=== PATIENT | male | born 1970 | race Two or more races ===

== ENCOUNTER 2020-08-12 02:33 | Emergency (ER) | payer SELFPAY ==
--- NOTE | 2020-08-12 | XR_ITS ---
EXAMINATION: CHEST 1 VIEW CLINICAL INFORMATION: Dyspnea. COMPARISON: 10/23/2018. TECHNIQUE: An AP view of the chest is provided. FINDINGS: The cardiac silhouette is not enlarged. The mediastinal and hilar contours are unremarkable. There are neither pleural effusions nor pneumothoraces. There is mild atelectasis within the right lower lung zone. There are no consolidations. The osseous structures are stable. XR/XR chest 1V IMPRESSION: No consolidations. Mild right lower lung zone atelectasis.
--- NOTE | 2020-08-12 | ECG_ITS ---
Test Reason : CHEST PAIN Blood Pressure : / mmHG Vent. Rate : 101 BPM Atrial Rate : 101 BPM P-R Int : 164 ms QRS Dur : 096 ms QT Int : 358 ms P-R-T Axes : 051 -21 036 degrees QTc Int : 464 ms Sinus tachycardia Minimal voltage criteria for LVH, may be normal variant RSR' or QR pattern in V1 suggests right ventricular conduction delay Left axis deviation Abnormal ECG When compared with ECG of 10-FEB-2017 07:31, T wave amplitude has increased in Anterior leads Referred By: Generic ED Physician Electronically Signed By:MARILYN CAIN MD
[2020-08-12 02:49] VITALS: BP 125/77; BP 130/80; PULSE 100; PULSE 109; RESP 12; TEMP 37; O2SAT 96; O2SAT 97; BMI 29.5
--- NOTE | 2020-08-12 03:25 | ED.SOB ---
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 He denies any COVID-19 and states that he does not feel any problems despite the fact that he is experiencing shortness of breath. Otherwise, he denies fevers, chills, sore throat, new cough and states that he has underlying lung condition for which he has previously been taking an inhaler for but no longer has a prescription. He states that he used a family member's nebulizer yesterday morning with limited resolution of symptoms. In addition, he states he experienced some chest tightness yesterday that has currently resolved. Related Data Previous Rx's Medication Instructions Recorded albuterol sulfate [Ventolin HFA] 2 puff INHALATION Q4-6H PRN #1 ea 08/12/20 prednisone 40 mg PO DAILY 5 Days #10 tab 08/12/20 Allergies Allergy/AdvReac Type Severity Reaction Status Date / Time penicillin V Allergy Unknown Rash Verified 08/12/20 02:48 Penicillins [PENICILLINS] Allergy Unknown UNKNOWN Verified 08/12/20 02:48 Review of Systems Review of Systems: Pertinent positives and negatives as stated in HPI 10 point review of systems otherwise negative. PMFSH Past Medical History Source: nursing notes reviewed Medical History Asthma Pneumonia Social History Social History Advance Directives: No Advance Directives Information Provided: No Physical Exam Vital Signs: Vital Signs: Last Vital Signs Temp 98.6 F 08/12/20 02:49 Pulse 100 08/12/20 02:49 Resp 12 08/12/20 02:49 BP 125/77 08/12/20 02:49 Pulse Ox 97 08/12/20 02:49 Body Mass Index 29.5 VITAL SIGNS: Reviewed. GENERAL: Well developed, well nourished, in no acute distress. HEAD: Normocephalic/atraumatic, EYES: PERRLA, EOMI intact without pain, no nystagmus/pallor/icterus noted EARS: Ext canals without abnormality, TMs non-bulging and non-erythematous NOSE: Nares patent bilateral OROPHARYNX: no oral lesions noted, posterior pharynx clear and non-erythematous without noted tonsillar enlargement/erythema/exudates NECK: Supple, no adenopathy LUNGS: Normal breath sounds. No adventitious sounds or accessory muscle use. SpO2<97> CARDIOVASCULAR: Regular rate and rhythm without noted murmurs, no JVD or lower extremity edema. ABDOMEN: Soft, non-tender, non-distended with bowel sounds. No rigidity. No guarding. No palpable masses or hernias noted MUSCULOSKELETAL: No tenderness, deformities, or effusions noted on gross inspection. EXTREMITIES: No cyanosis, clubbing or edema. SKIN: Inspection of the skin reveals no rashes, ulcerations, jaundice, pallor, or petechiae. NEUROLOGIC: Alert and oriented x 4. Strength and sensation to light touch were grossly intact x 4. Course Course Course Narrative: Is a 50-year-old male with history and clinical presentation concerning for possible viral URI, mild asthma exacerbation, and less likely pneumonia/ PE/cardiac etiology however the latter of which will be ruled out. On review of all investigations there is no evidence to support pneumonia, PE, cardiac ischemia and with mild asthma like symptoms versus viral URI patient will be discharged with a prescription for Bentyl in as he does not have a current PCP that can provide this medication. All results and findings were discussed with the patient at bedside with a medical service technician and he was discharged to home in stable condition. MDM - SOB/Dyspnea Lab Data Result diagrams: 08/12/20 03:40 08/12/20 03:40 Labs: Lab Results 08/12/20 08/12/20 08/12/20 Range/Units 03:40 03:40 03:40 WBC 9.3 (4.8-10.8) X10*3/uL RBC 4.84 (4.60-5.80) X10*6/uL Hgb 15.2 (14.0-18.0) g/dl Hct 44.6 (42-52) % MCV 92.1 (80-98) fL MCH 31.4 (27.0-33.0) pg MCHC 34.1 (31.0-36.0) g/dl RDW 13.2 (11.0-16.0) % Plt Count 274 (160-400) X10*3/uL MPV 9.7 (9.4-12.4) fL Immature Gran % (Auto) 0.3 (0.0-0.4) % Neut % (Auto) 64.1 (45-73) % Lymph % (Auto) 23.8 (20-40) % [place] % (Auto) 6.5 (2-11) % Eos % (Auto) 5.0 H (0-4) % Baso % (Auto) 0.3 (0-2) % Lymph # (Auto) 2.2 (1.2-4.9) X10*3/uL [place] # (Auto) 0.6 (0.1-1.2) X10*3/uL Eos # (Auto) 0.5 H (0.0-0.4) X10*3/uL Baso # (Auto) 0.0 (0.0-0.2) X10*3/uL Abs Immat Gran (auto) 0.03 (0.00-0.03) X10*3/uL Absolute Neuts (auto) 6.0 (2.0-8.3) X10*3/uL Absolute Nucleated RBC 0.000 (0.0-0.012) X10*3/uL Nucleated RBC % (auto) 0.0 (0.0-0.2) /100WBC D-Dimer < 200 NG/ML Sodium 139 (135-145) mmol/L Potassium 3.7 (3.3-5.1) mmol/l Chloride 104 (96-108) mmol/L Carbon Dioxide 27 (22-29) mmol/L Anion Gap 12 (12-20) BUN 15 (9-16) mg/dL Creatinine 1.04 (0.5-1.4) mg/dL Estim Creat Clear Calc 81.0 Estimated GFR > 60 Random Glucose 79 (60-115) mg/dL Calcium 9.5 (8.4-10.2) mg/dL Total Bilirubin 0.6 (0.0-1.0) mg/dL AST 34 (5-37) U/L ALT 25 (0-40) U/L Alkaline Phosphatase 77 (39-117) U/L Troponin I High Sens (<3.5-35.0) ng/L Total Protein 7.6 (6.5-8.0) g/dL Albumin 4.5 (3.5-5.0) g/dL 08/12/20 Range/Units 03:40 WBC (4.8-10.8) X10*3/uL RBC (4.60-5.80) X10*6/uL Hgb (14.0-18.0) g/dl Hct (42-52) % MCV (80-98) fL MCH (27.0-33.0) pg MCHC (31.0-36.0) g/dl RDW (11.0-16.0) % Plt Count (160-400) X10*3/uL MPV (9.4-12.4) fL Immature Gran % (Auto) (0.0-0.4) % Neut % (Auto) (45-73) % Lymph % (Auto) (20-40) % [place] % (Auto) (2-11) % Eos % (Auto) (0-4) % Baso % (Auto) (0-2) % Lymph # (Auto) (1.2-4.9) X10*3/uL [place] # (Auto) (0.1-1.2) X10*3/uL Eos # (Auto) (0.0-0.4) X10*3/uL Baso # (Auto) (0.0-0.2) X10*3/uL Abs Immat Gran (auto) (0.00-0.03) X10*3/uL Absolute Neuts (auto) (2.0-8.3) X10*3/uL Absolute Nucleated RBC (0.0-0.012) X10*3/uL Nucleated RBC % (auto) (0.0-0.2) /100WBC D-Dimer NG/ML Sodium (135-145) mmol/L Potassium (3.3-5.1) mmol/l Chloride (96-108) mmol/L Carbon Dioxide (22-29) mmol/L Anion Gap (12-20) BUN (9-16) mg/dL Creatinine (0.5-1.4) mg/dL Estim Creat Clear Calc Estimated GFR Random Glucose (60-115) mg/dL Calcium (8.4-10.2) mg/dL Total Bilirubin (0.0-1.0) mg/dL AST (5-37) U/L ALT (0-40) U/L Alkaline Phosphatase (39-117) U/L Troponin I High Sens < 3.5 (<3.5-35.0) ng/L Total Protein (6.5-8.0) g/dL Albumin (3.5-5.0) g/dL ECG Data Attestation: I personally reviewed and interpreted this ECG as follows: Interpretation: sinus rhythm, HR- 101, no acute evidence of ischemia, CO/QRS/ QTC are within normal limits. Discharge Plan Discharge Clinical Impression: Asthma with exacerbation Qualifiers: Asthma severity: mild Asthma persistence: unspecified Qualified Code(s): J45.901 - Unspecified asthma with (acute) exacerbation Patient Disposition: Home, Self-Care Instructions: Asthma (ED) Additional Instructions: 1. Hoy le lucia hecho carson prueba de COVID-19 y deber? permanecer en cuarentena hasta que reciba carson llamada que le proporcione los resultados de la prueba. Estos resultados se deben informar a la cameron p?ica de [place]. 2. Deber? buscar el establecimiento de atenci?n con un proveedor de atenci?n primaria para el tratamiento y mantenimiento continuos de tristan afecci?n pulmonar subyacente. El paciente y / o la mike reconocen que comprenden los resultados (seg?n corresponda), el diagn?stico, el plan de tratamiento, la necesidad de seguimiento y los s?ntomas que deber?an impulsar el regreso a la parviz de emergencias. Prescriptions: New albuterol sulfate [Ventolin HFA] 90 mcg/actuation HFA aerosol inhaler 2 puff inhalation Q4-6H PRN (Reason: shortness of breath or wheezing) Qty: 1 RF: 0 prednisone 20 mg tablet 40 mg PO DAILY 5 Days Qty: 10 RF: 0 Print Language: Nauruan
[2020-08-12 03:47] LABS: Basophils Percent Auto 0.3 % (0-2); Eosinophils Absolute Auto 0.5 X10*3/uL (0.0-0.4); Hematocrit 44.6 % (42-52); Hemoglobin 15.2 g/dl (14.0-18.0); Imm Gran Abs Auto 0.03 X10*3/uL (0.00-0.03); Imm Gran Pct Auto 0.3 % (0.0-0.4); Lymphocytes Absolute Auto 2.2 X10*3/uL (1.2-4.9); Lymphocytes Percent Auto 23.8 % (20-40); MANUAL DIFF FLAG NO; Mean Corpuscular HGB Conc 34.1 g/dl (31.0-36.0); Mean Corpuscular Hemoglobin 31.4 pg (27.0-33.0); Mean Corpuscular Volume 92.1 fL (80-98); Mean Platelet Volume 9.7 fL (9.4-12.4); Monocytes Absolute Auto 0.6 X10*3/uL (0.1-1.2); Monocytes Percent Auto 6.5 % (2-11); Neutrophils Percent Auto 64.1 % (45-73); Platelet Count 274 X10*3/uL (160-400); Red Blood Count 4.84 X10*6/uL (4.60-5.80); Red Cell Distribution Width 13.2 % (11.0-16.0); White Blood Count 9.3 X10*3/uL (4.8-10.8)
[2020-08-12 03:57] LABS: D Dimer < 200 NG/ML
--- NOTE | 2020-08-12 03:58 | PC.NURSE ---
pt resting in bed and in no distress. pt has a dry cough, infrequent. pt reports he is a smoker, with a history of asthma. pt speaking in full and clear sentences, BBS clear and equal. pt;s skin warm and dry. pt reports that his chest pain resolved yesterday and was only present for a few hours.
[2020-08-12 04:09] LABS: Alanine Aminotransferase 25 U/L (0-40); Albumin Level 4.5 g/dL (3.5-5.0); Alkaline Phosphatase 77 U/L (39-117); Anion Gap 12 (12-20); Aspartate Amino Transferase 34 U/L (5-37); Bilirubin Total 0.6 mg/dL (0.0-1.0); Blood Urea Nitrogen 15 mg/dL (9-16); Calcium 9.5 mg/dL (8.4-10.2); Carbon Dioxide 27 mmol/L (22-29); Chloride 104 mmol/L (96-108); Estimated Glomerular Filt Rate > 60; Glucose Random 79 mg/dL (60-115); Potassium 3.7 mmol/l (3.3-5.1); Sodium 139 mmol/L (135-145); Total Protein 7.6 g/dL (6.5-8.0)
[2020-08-12 04:13] LABS: Troponin-I High Sensitivity < 3.5 ng/L (<3.5-35.0)
[2020-08-12 04:42] VITALS: BP 108/72; PULSE 88; RESP 14; O2SAT 96
== END 2020-08-12 04:46 | disposition home or self-care (01) ==
PROVIDERS: Emergency Provider Student in an Organized Health Care Education/Training Program
DX: J45.901 Unspecified asthma with (acute) exacerbation (principal); R06.02 Shortness of breath; Z20.828 Contact with and (suspected) exposure to other viral communicable diseases; Z79.899 Other long term (current) drug therapy
CPT/HCPCS: 36415; 71045; 80053; 84484; 85025; 85379; 93005; 99283; 99284; U0003

== ENCOUNTER 2021-07-20 12:36 | Outpatient (REF) | payer MEDICAID, SELFPAY ==
--- NOTE | ~2021-07-20 | XR_ITS ---
EXAMINATION: XR KNEE, RIGHT CLINICAL INFORMATION: Pain COMPARISON: None TECHNIQUE: Four views of the right knee. FINDINGS: Bones and soft tissues are normal. No fracture or joint effusion. Alignment is anatomic. Joint spaces are well maintained. No abnormal soft tissue calcification. XR/XR knee RT 4V IMPRESSION: Normal right knee.
== END 2021-07-20 12:37 | disposition home or self-care (01) ==
LOC: HO.XRAY 12:36
PROVIDERS: PCP Nurse Practitioner; Visit Provider Nurse Practitioner
DX: M25.561 Pain in right knee (principal)
CPT/HCPCS: 73564

== ENCOUNTER 2021-11-03 18:29 | Emergency (ER) | payer MEDICAID, SELFPAY ==
--- NOTE | ~2021-11-03 | XR_ITS ---
EXAMINATION: XR ANKLE, LEFT XR FOOT, LEFT CLINICAL INFORMATION: Worsening pain for COMPARISON: None TECHNIQUE: AP, lateral, and mortise views of the left ankle and AP, lateral, and oblique views of the left foot. FINDINGS: LEFT ANKLE: No fracture. Alignment is anatomic. Ankle mortise is symmetric. Joint spaces are maintained. No ankle joint effusion. Soft tissues are normal. LEFT FOOT: Mild soft tissue swelling foot. No fracture or malalignment. Bone mineralization is normal. Joints appear relatively well-preserved. No soft tissue mineralization. XR/XR foot LT min 3V IMPRESSION: No acute osseous abnormalities at the left ankle and foot. Mild soft tissue swelling at the foot.
--- NOTE | ~2021-11-03 | XR_ITS ---
EXAMINATION: XR ANKLE, LEFT XR FOOT, LEFT CLINICAL INFORMATION: Worsening pain for COMPARISON: None TECHNIQUE: AP, lateral, and mortise views of the left ankle and AP, lateral, and oblique views of the left foot. FINDINGS: LEFT ANKLE: No fracture. Alignment is anatomic. Ankle mortise is symmetric. Joint spaces are maintained. No ankle joint effusion. Soft tissues are normal. LEFT FOOT: Mild soft tissue swelling foot. No fracture or malalignment. Bone mineralization is normal. Joints appear relatively well-preserved. No soft tissue mineralization. XR/XR ankle LT min 3V IMPRESSION: No acute osseous abnormalities at the left ankle and foot. Mild soft tissue swelling at the foot.
--- NOTE | ~2021-11-03 | XR_ITS ---
EXAMINATION: XR CHEST CLINICAL INFORMATION: Wheezing COMPARISON: 08/12/2020 TECHNIQUE: Frontal view of the chest was obtained. FINDINGS: Cardiac and mediastinal contours are normal. Pulmonary vasculature is unremarkable. Lungs are clear. No consolidation, pneumothorax, or pleural effusion. No acute osseous findings. XR/XR chest 1V IMPRESSION: No acute cardiopulmonary abnormalities.
[2021-11-03 18:41] VITALS: BP 129/81; PULSE 83; RESP 18; TEMP 36.7; O2SAT 97; BMI 27.6
[2021-11-03 19:08] LABS: COVID-19 Test Negative (Negative)
--- NOTE | 2021-11-03 19:50 | ED_ITS ---
HPI - Extremity Injury (Lower) General Chief Complaint: Dyspnea Stated Complaint: X3 wks left ankle pain and asthma Time Seen by Provider: 11/03/21 18:56 Source: patient Mode of arrival: ambulatory Limitations: language barrier ([place]alander-speaking, medical auditor utilized) History of Present Illness HPI Narrative: Patient is a 51-year-old male with a past medical history of asthma. Patient is complaining of worsening pain to his left ankle and left heel over the past 3 weeks. Pain is increasing, it is worse with weight-bearing, and worse while barefoot. He reports taking duloxetine as prescribed by his primary care provider which is not helping. Denies any known precipitating injury, past surgeries to the left ankle or foot, fevers, chills, recent wounds or infections, swelling/redness of the foot or leg, denies past history of DVT/PE, recent surgery or immobilization, recent travel, history of cancer. In addition, when presenting to triage she had reported feeling short of breath earlier today, for which he used his albuterol inhaler and this improved. Currently without shortness of breath. Denies any recent sick contacts or COVID-19 exposure. Denies chest pain, palpitations, dizziness or lightheadedness. Onset (ago): week(s) Severity: mild Severity scale (1-10): 4 Relieving factors: nothing Exacerbating factors: weight bearing Related Data Previous Rx's Medication Instructions Recorded albuterol sulfate 90 mcg/actuation 2 puff INHALATION Q4-6H PRN #1 ea 08/12/20 aerosol inhaler (Ventolin HFA) prednisone 20 mg tablet 40 mg PO DAILY 5 Days #10 tab 08/12/20 Allergies Allergy/AdvReac Type Severity Reaction Status Date / Time penicillin V Allergy Unknown Rash Verified 11/03/21 19:24 Penicillins [PENICILLINS] Allergy Unknown Rash Verified 11/03/21 19:24 Review of Systems Verdana 4l Review of Systems: Verdana 4d Bowl[place] 4Bd Constitutional: Bowlus 4d No weight loss, fever, chills, weakness or fatigue. Bowlus 4Bd HEENT: [place] 4d No vision changes. No sneezing, congestion, runny nose or sore throat. Bowlus 4Bd Skin: Bowl[place] 4d No rash or itching. Bowlus 4Bd CardiovascularCardiovascular: No chest pain, chest pressure or chest discomfort. No palpitations or pedal edema. Respiratory: + shortness of breath as noted in HPI. No cough or sputum production. Gastrointestinal: No anorexia, nausea, vomiting or diarrhea. No abdominal pain or blood in stool. Genitourinary: No burning micturition. No urinary frequency or incontinence. Neurologic: No headache, dizziness, syncope, unilateral weakness, ataxia, numbness or tingling in the extremities. Musculoskeletal: + left ankle and heel pain Hematologic: No bleeding or bruising. Lymphatics: No enlarged lymph nodes. Psychiatric:No depression or anxiety. Endocrine: No polyuria or polydipsia. [facility] Past Medical History Medical History Asthma Pneumonia Surgical History No pertinent past surgical history Family History Family History Mother Diabetes Pulmonary disease Father Medical history unknown Daughter No problems noted. Son No problems noted. Son No problems noted. Son No problems noted. Sister In good health Brother No problems noted. 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 Blood pressure normal.? Heart rate normal.? Respiration rate normal. Temperature normal.? Oxygen saturation normal. Appearance: Alert.?Oriented to person, place and time. No acute distress.?Normal affect. Eyes: Pupils equal, round and reactive to light.? ENT: Pharynx normal.?? Neck: Normal inspection.? Neck supple.?? CVS: Heart sounds normal. Normal heart rate and rhythm.? Pulses normal.?? Respiratory: No respiratory distress.? Lung sounds clear to auscultation bilaterally?? Abdomen: Soft and non-tender. Normoactive bowel sounds. No pulsatile mass.?? Skin: Skin warm and dry.? Normal skin color.? Normal skin turgor.?? Extremities: No lower extremity edema.? No calf ttp? MSK: Full AROM of left ankle, palpable 2+ DP/PT pulses bilaterally. Focal tenderness to palpation of the left medial calcaneus and at the proximal plantar fascia Neuro: Moves all extremities spontaneously. Sensation intact bilaterally. No focal neuro deficits. Ambulates with antalgic gait.. Course Course Course Narrative: Patient is a 51-year-old male being evaluated for left ankle and heel pain. Will obtain x-ray of the ankle and foot to exclude fracture dislocations though I suspect his symptoms are more consistent with possible plantar fasciitis. History and physical exam not consistent with DVT, or tendon rupture. CBC and BMP in addition chest x-ray were ordered as protocol from triage. Reevaluation(s) Reevaluation #1: COVID-19 testing is negative. Chest x-ray is normal. No acute fracture or dislocation of the left ankle or foot there is some mild soft tissue swelling of the left foot. Patient well appearing, nontoxic, applied Merrick bandage to the left foot, advised use of NSAIDs and Tylenol in addition to [id number] shoe inserts and up with PCP and/or podiatry, patient was discharged home, discussed reasons to return to the emergency department, all questions answered. Patient agrees plan of care MDM - Extremity Injury (Lower) Medical Records Attestation: I reviewed the patient's medical records. Lab Data Attestation: I reviewed the patient's lab results. Labs: Lab Results 11/03/21 Range/Units 18:47 COVID-19 ([facility]) Negative (Negative) COVID-19 Clin Com See Note Imaging Data Chest x-ray: Attestation: I personally reviewed and interpreted this imaging study as follows: Radiologist's impression: IMPRESSION: No acute cardiopulmonary abnormalities. left foot/ankle XR: Attestation: I personally reviewed and interpreted this imaging study as follows: Radiologist's impression: No acute osseous abnormalities at the left ankle and foot. Mild soft tissue swelling at the foot. Discharge Plan Discharge Clinical Impression: Plantar fasciitis Patient Disposition: Home, Self-Care Instructions: Plantar Fasciitis (ED), Plantar Fasciitis Exercises (ED) Additional Instructions: You may use Tylenol and ibuprofen [id number] as needed for your pain. In addition, you should avoid walking barefoot at all times. You can purchase [id number] shoe inserts to alleviate some of your pain. Please contact your primary care provider reschedule follow-up visit in 1-3 days. You may benefit from a referral to Podiatry for orthotics. Please return to the emergency department with any new or worsening symptoms or concerns. Prescriptions: No Action albuterol sulfate [Ventolin HFA] 90 mcg/actuation HFA aerosol inhaler 2 puff inhalation Q4-6H PRN (Reason: shortness of breath or wheezing) Qty: 1 0RF prednisone 20 mg tablet 40 mg PO DAILY 5 Days Qty: 10 0RF Print Language: New Zealander
[2021-11-03] MEDS: Acetaminophen 325 MG TABLET 650 MG PO (19:56)
[2021-11-03] MEDS: Ibuprofen 600 MG TABLET PO (19:56)
--- NOTE | 2021-11-03 20:09 | PC.NURSE ---
attempted to draw labs as ordered . patient refused . provider notified .
[2021-11-03 20:51] VITALS: RESP 16
[2021-11-03 20:59] VITALS: BP 109/67; PULSE 89; RESP 16; TEMP 37; O2SAT 97
== END 2021-11-03 21:09 | disposition home or self-care (01) ==
PROVIDERS: Emergency Provider Emergency Medicine Emergency Medical Services
DX: M72.2 Plantar fascial fibromatosis (principal); Z20.822 Contact with and (suspected) exposure to COVID-19; R06.02 Shortness of breath
CPT/HCPCS: 71045; 73610; 73630; 87635; 99283; 99284

== ENCOUNTER 2022-11-27 12:12 | Emergency (ER) | payer MEDICAID, SELFPAY ==
[2022-11-27 13:06] VITALS: BP 142/88; PULSE 108; RESP 18; TEMP 36.7; O2SAT 98; BMI 37.9
--- NOTE | 2022-11-27 13:06 | ED.GENADULT ---
HPI - General Adult General Chief complaint: Abdominal Pain Stated complaint: Stomach Pain Related Data Previous Rx's Medication Instructions Recorded albuterol sulfate 90 mcg/actuation 2 puff inhalation Q4-6H PRN 08/12/20 aerosol inhaler (Ventolin HFA) shortness of breath or wheezing #1 ea prednisone 20 mg tablet 40 mg PO DAILY 5 days #10 tabs 08/12/20 azithromycin 250 mg tablet See Rx Instructions PO .COMPLEX #6 12/30/22 tabs benzonatate 200 mg capsule 200 mg PO TID PRN cough #20 caps 12/30/22 prednisone 20 mg tablet 40 mg PO DAILY #10 tabs 12/30/22 omeprazole 20 mg capsule,delayed 20 mg PO DAILY #30 caps 05/12/23 release Allergies Allergy/AdvReac Type Severity Reaction Status Date / Time penicillin V Allergy Unknown Rash Verified 01/27/23 11:34 Penicillins [PENICILLINS] Allergy Unknown Rash Verified 01/27/23 11:34 shellfish derived Allergy Swelling Verified 01/27/23 11:34 [facility] Past Medical History Medical History Asthma Pneumonia Surgical History No pertinent past surgical history Family History Family History Mother Diabetes Pulmonary disease Father Medical history unknown Daughter No problems noted. Son No problems noted. Son No problems noted. Son No problems noted. Sister In good health Brother No problems noted. Social History Social History Alcohol intake: current Alcohol intake frequency: holidays/special occasions only Alcohol type: beer Smoked in Last 30 Days: Yes Use of substances other than those prescribed or required for medical reasons: No Advance Directives: No Advance Directives Information Provided: Yes Physical Exam ED Vital Signs: BMI result Body Mass Index 37.9 Course Course Course Narrative: MJ - [id number]-vba-male, hx of asthma, presenting to the emergency department with complaints of abdominal pain, nausea, and vomiting since yesterday. Patient believes he has ?acid problems. ? Plan for labs in to be seen in ER when a room becomes available Medical Decision Making Lab Data 11/27/22 13:17 11/27/22 13:17 Labs: Lab Results 11/27/22 11/27/22 Range/Units 13:17 13:17 WBC 9.6 (4.8-10.8) X10*3/uL RBC 5.33 (4.60-5.80) X10*6/uL Hgb 15.3 (14.0-18.0) g/dl Hct 46.5 (42.0-52.0) % MCV 87.2 (80.0-98.0) fL MCH 28.7 (27.0-33.0) pg MCHC 32.9 (31.0-36.0) g/dl RDW 14.0 (11.0-16.0) % Plt Count 292 (160-400) X10*3/uL MPV 10.4 (9.4-12.4) fL Immature Gran % (Auto) 0.2 (0.0-0.4) % Neut % (Auto) 72.9 (45-73) % Lymph % (Auto) 18.3 L (20-40) % [place] % (Auto) 5.9 (2-11) % Eos % (Auto) 2.4 (0-4) % Baso % (Auto) 0.3 (0-2) % Lymph # (Auto) 1.8 (1.2-4.9) X10*3/uL [place] # (Auto) 0.6 (0.1-1.2) X10*3/uL Eos # (Auto) 0.2 (0.0-0.4) X10*3/uL Baso # (Auto) 0.0 (0.0-0.2) X10*3/uL Abs Immat Gran (auto) 0.02 (0.00-0.03) X10*3/uL Absolute Neuts (auto) 7.0 (2.0-8.3) x10*3/uL Absolute Nucleated RBC 0.000 (0.0-0.012) X10*3/uL Nucleated RBC % (auto) 0.0 (0.0-0.2) /100WBC Sodium 141 (135-145) mmol/L Potassium 4.8 (3.3-5.1) mmol/L Chloride 106 (96-108) mmol/L Carbon Dioxide 27 (22-29) mmol/L Anion Gap 13 (12-20) BUN 12 (9-16) mg/dL Creatinine 0.97 (0.5-1.4) mg/dL Estim Creat Clear Calc 96.3 Estimated GFR > 60 Random Glucose 104 (60-115) mg/dL Calcium 9.9 (8.4-10.2) mg/dL Total Bilirubin 0.5 (0.0-1.0) mg/dL AST 34 (5-37) U/L ALT 34 (0-40) U/L Alkaline Phosphatase 92 (39-117) U/L Total Protein 7.7 (6.5-8.0) g/dL Albumin 4.4 (3.5-5.0) g/dL Lipase 23 (8-78) U/L Discharge Plan Discharge Clinical Impression: Abdominal pain Patient Disposition: Elopement Prescriptions: No Action albuterol sulfate [Ventolin HFA] 90 mcg/actuation HFA aerosol inhaler 2 puff inhalation Q4-6H PRN (Reason: shortness of breath or wheezing) Qty: 1 0RF prednisone 20 mg tablet 40 mg PO DAILY 5 Days Qty: 10 0RF azithromycin 250 mg tablet See Rx Instructions .ROUTE .COMPLEX Qty: 6 0RF Rx Instructions: For 250 mg dose pack: take 500 mg today (day 1), then 250 mg for 4 days (days 2-5) benzonatate 200 mg capsule 200 mg PO TID PRN (Reason: cough) Qty: 20 0RF prednisone 20 mg tablet 40 mg PO DAILY Qty: 10 0RF omeprazole 20 mg capsule,delayed release(DR/EC) 20 mg PO DAILY Qty: 30 0RF Discharge Date/Time: 11/28/22 00:46
[2022-11-27 13:23] LABS: MANUAL DIFF FLAG NO
[2022-11-27 13:33] LABS: Basophils Percent Auto 0.3 % (0-2); Eosinophils Absolute Auto 0.2 X10*3/uL (0.0-0.4); Eosinophils Percent Auto 2.4 % (0-4); Hematocrit 46.5 % (42.0-52.0); Hemoglobin 15.3 g/dl (14.0-18.0); Imm Gran Abs Auto 0.02 X10*3/uL (0.00-0.03); Imm Gran Pct Auto 0.2 % (0.0-0.4); Lymphocytes Absolute Auto 1.8 X10*3/uL (1.2-4.9); Lymphocytes Percent Auto 18.3 % (20-40); Mean Corpuscular HGB Conc 32.9 g/dl (31.0-36.0); Mean Corpuscular Hemoglobin 28.7 pg (27.0-33.0); Mean Corpuscular Volume 87.2 fL (80.0-98.0); Mean Platelet Volume 10.4 fL (9.4-12.4); Monocytes Absolute Auto 0.6 X10*3/uL (0.1-1.2); Monocytes Percent Auto 5.9 % (2-11); Neutrophils Percent Auto 72.9 % (45-73); Platelet Count 292 X10*3/uL (160-400); Red Blood Count 5.33 X10*6/uL (4.60-5.80); White Blood Count 9.6 X10*3/uL (4.8-10.8)
[2022-11-27 13:43] LABS: Alanine Aminotransferase 34 U/L (0-40); Albumin Level 4.4 g/dL (3.5-5.0); Alkaline Phosphatase 92 U/L (39-117); Anion Gap 13 (12-20); Aspartate Amino Transferase 34 U/L (5-37); Bilirubin Total 0.5 mg/dL (0.0-1.0); Blood Urea Nitrogen 12 mg/dL (9-16); Calcium 9.9 mg/dL (8.4-10.2); Carbon Dioxide 27 mmol/L (22-29); Chloride 106 mmol/L (96-108); Creatinine Clr Calc Pharmacy 96.3; Estimated Glomerular Filt Rate > 60; Glucose Random 104 mg/dL (60-115); Lipase 23 U/L (8-78); Potassium 4.8 mmol/L (3.3-5.1); Sodium 141 mmol/L (135-145); Total Protein 7.7 g/dL (6.5-8.0)
== END 2022-11-28 00:46 | disposition left against medical advice (07) ==
PROVIDERS: Physician Assistant; Emergency Provider Emergency Medicine
DX: R10.9 Unspecified abdominal pain (principal); R11.2 Nausea with vomiting, unspecified; J45.909 Unspecified asthma, uncomplicated; Z79.899 Other long term (current) drug therapy
CPT/HCPCS: 36415; 80053; 83690; 85025; 99281; 99283

== ENCOUNTER 2022-12-30 09:58 | Emergency (ER) | payer MEDICAID, SELFPAY ==
--- NOTE | ~2022-12-30 | XR_ITS ---
EXAMINATION: XR CHEST CLINICAL INFORMATION: Chest pain. COMPARISON: 11/03/2021 chest radiograph. TECHNIQUE: 2 views of the chest were obtained. FINDINGS: No significant abnormality is noted involving the heart, lungs, mediastinum, bony thorax or soft tissues. XR/XR chest 2V IMPRESSION: No acute cardiopulmonary process.
[2022-12-30 10:01] VITALS: BP 140/74; PULSE 99; RESP 19; TEMP 36.6; O2SAT 99; BMI 39.4
--- NOTE | 2022-12-30 10:04 | ECG_ITS ---
Test Reason : chest pain Blood Pressure : / mmHG Vent. Rate : 096 BPM Atrial Rate : 096 BPM P-R Int : 150 ms QRS Dur : 098 ms QT Int : 342 ms P-R-T Axes : 044 -30 033 degrees QTc Int : 432 ms Normal sinus rhythm Left axis deviation Abnormal ECG When compared to the previous EKG of No significant changes seen Referred By: Generic ED Physician Electronically Signed By:Van Castellanos
--- NOTE | 2022-12-30 10:29 | ED.GENADULT ---
HPI - General Adult General Chief complaint: Upper Respiratory Symptoms Stated complaint: chest pain Time Seen by Provider: 12/30/22 10:19 Source: patient, RN notes reviewed, old records reviewed and interpreter and translator Mode of arrival: ambulatory Limitations: language barrier History of Present Illness HPI narrative: 52-year-old primarily Setswana-speaking male presents for evaluation of shortness of breath, cough patient reports that he has had an increased cough for the last 4 days. He denies any sputum production. Patient reports he has a history of asthma he also complains of chest and rib pain with coughing. His discomfort is moderate. Denies any fevers, chills, sick contacts, recent travel Related Data Previous Rx's Medication Instructions Recorded albuterol sulfate 90 mcg/actuation 2 puff inhalation Q4-6H PRN 08/12/20 aerosol inhaler (Ventolin HFA) shortness of breath or wheezing #1 ea prednisone 20 mg tablet 40 mg PO DAILY 5 days #10 tabs 08/12/20 azithromycin 250 mg tablet See Rx Instructions PO .COMPLEX #6 12/30/22 tabs benzonatate 200 mg capsule 200 mg PO TID PRN cough #20 caps 12/30/22 prednisone 20 mg tablet 40 mg PO DAILY #10 tabs 12/30/22 Allergies Allergy/AdvReac Type Severity Reaction Status Date / Time penicillin V Allergy Unknown Rash Verified 12/30/22 10:01 Penicillins [PENICILLINS] Allergy Unknown Rash Verified 12/30/22 10:01 shellfish derived Allergy Swelling Verified 12/30/22 10:01 Review of Systems Constitutional: Constitutional: Reports as per HPI, Denies chills and Denies fever(s) Cardiovascular: Cardiovascular: Denies chest pain and Reports dyspnea Comments: chest pain with coughing Respiratory: Respiratory: Denies cough and Reports dyspnea Gastrointestinal: Gastrointestinal: Denies abdominal pain, Denies constipation and Denies vomiting Genitourinary: Genitourinary: Denies difficulty urinating and Denies dysuria [facility] Past Medical History Medical History Asthma Pneumonia Surgical History No pertinent past surgical history Family History Family History Mother Diabetes Pulmonary disease Father Medical history unknown Daughter No problems noted. Son No problems noted. Son No problems noted. Son No problems noted. Sister In good health Brother No problems noted. Social History Social History Alcohol intake: never Smoked in Last 30 Days: No Use of substances other than those prescribed or required for medical reasons: No Advance Directives: No Advance Directives Information Provided: Yes Physical Exam ED Vital Signs: Vital Signs - 24 hr 12/30/22 10:01 Temperature 98 F Pulse Rate 99 Respiratory Rate 19 Blood Pressure 140/74 H Pulse Oximetry 99 Oxygen Delivery Method Room Air BMI result Body Mass Index 39.4 Const General: healthy appearing, comfortable, no acute distress, alert and awake Nutritional Appearance: well nourished Orientation/consciousness: patient oriented x3 HENMT Head: Yes normocephalic and Yes atraumatic Throat: Yes posterior oropharynx normal Eyes Eyelids: Yes eyelids normal Conjunctivae: conjunctivae normal Sclerae: sclerae normal Corneas: corneas normal Pupils: Equal, round and reactive pupils present EOM: EOMs intact bilaterally Neck Neck: Yes full ROM Chest Other: diffuse anterior chest wall tenderness. no crepitus Resp Effort & Inspection: normal respiratory effort, able to speak in complete sentences, no audible wheezes and not labored Auscultation: clear to auscultation bilaterally Cardio Rate: regular rate Rhythm: regular rhythm GI Inspection: No distended Palpation (GI): Soft to palpation, not firm, nontender, no guarding and not rigid Auscultation: normoactive bowel sounds Skin General skin exam: no rashes or lesions noted and elasticity normal Neuro General: patient oriented x3 Cranial nerves: Yes CN's II-XII intact bilaterally, Yes Equal, round and reactive pupils present and Yes Bilaterally intact EOM present Cognition (Neuro): normal cognition Extrem Other: Moving all extremities well without any obvious deformities Medical Decision Making Medical Decision Making MDM Narrative: 52-year-old male presents for evaluation of cough, respiratory symptoms. He also endorses chest wall pain. EKG shows normal sinus rhythm without any acute ischemia. Doubt ACS and given his chest pain is only with coughing and is reproducible, most likely related to musculoskeletal origin. Again a chest x-ray and a viral swell. patient's lungs are clear to auscultation, asthma as less likely to be a factor. The cough is most likely viral etiology Differential Diagnosis upper respiratory infection Bronchitis Pneumonia Chest wall pain ACS less likely at Lab Data Labs: Lab Results 12/30/22 Range/Units 10:34 Influenza Type A (PCR) NEGATIVE (Negative) Influenza Type B (PCR) NEGATIVE (Negative) RSV RNA Qual (PCR) NEGATIVE (Negative) SARS-CoV-2 RNA (RT-PCR) NEGATIVE (Negative) Independent Interpretation I performed an independent interpretation of an: Plain X-Ray Interpretation: no focal infiltrates Discharge Plan Discharge Clinical Impression: Upper respiratory infection, Chest wall pain Patient Disposition: Home, Self-Care Instructions: Acute Bronchitis (ED) Additional Instructions: take azithromycin and prednisone as directed this should help clear up her cough and shortness of breath you may use benzonatate Perles as needed for coughing follow-up with your primary doctor Prescriptions: New azithromycin 250 mg tablet See Rx Instructions .ROUTE .COMPLEX Qty: 6 0RF Rx Instructions: For 250 mg dose pack: take 500 mg today (day 1), then 250 mg for 4 days (days 2-5) benzonatate 200 mg capsule 200 mg PO TID PRN (Reason: cough) Qty: 20 0RF prednisone 20 mg tablet 40 mg PO DAILY Qty: 10 0RF No Action albuterol sulfate [Ventolin HFA] 90 mcg/actuation HFA aerosol inhaler 2 puff inhalation Q4-6H PRN (Reason: shortness of breath or wheezing) Qty: 1 0RF prednisone 20 mg tablet 40 mg PO DAILY 5 Days Qty: 10 0RF
--- NOTE | 2022-12-30 10:42 | PC.NURSE ---
patient a&ox3, dry cough noted, nasal swab performed per order, will continue to monitor.
[2022-12-30 11:17] LABS: Influenza A PCR NEGATIVE (Negative); Influenza B PCR NEGATIVE (Negative); Resp Syncy Virus RNA Qual PCR NEGATIVE (Negative); SARS COV2 PCR INHOUSE NEGATIVE (Negative)
== END 2022-12-30 12:00 | disposition home or self-care (01) ==
PROVIDERS: Physician Assistant; Emergency Provider Emergency Medicine
DX: J06.9 Acute upper respiratory infection, unspecified (principal); R07.89 Other chest pain; Z20.822 Contact with and (suspected) exposure to COVID-19; Z20.828 Contact with and (suspected) exposure to other viral communicable diseases; Z79.899 Other long term (current) drug therapy
CPT/HCPCS: 0241U; 71046; 93005; 99283; 99284

== ENCOUNTER 2023-01-27 11:08 | Emergency (ER) | payer MEDICAID, SELFPAY ==
[2023-01-27 11:35] VITALS: BP 129/81; PULSE 90; RESP 19; TEMP 36.6; O2SAT 95; BMI 40.3
--- NOTE | 2023-01-27 11:35 | ED.ABDPAIN ---
HPI - Abdominal Pain General Chief Complaint: Abdominal Pain Stated Complaint: Abd pain Time Seen by Provider: 01/27/23 14:52 Related Data Previous Rx's Medication Instructions Recorded albuterol sulfate 90 mcg/actuation 2 puff inhalation Q4-6H PRN 08/12/20 aerosol inhaler (Ventolin HFA) shortness of breath or wheezing #1 ea prednisone 20 mg tablet 40 mg PO DAILY 5 days #10 tabs 08/12/20 azithromycin 250 mg tablet See Rx Instructions PO .COMPLEX #6 12/30/22 tabs benzonatate 200 mg capsule 200 mg PO TID PRN cough #20 caps 12/30/22 prednisone 20 mg tablet 40 mg PO DAILY #10 tabs 12/30/22 Allergies Allergy/AdvReac Type Severity Reaction Status Date / Time penicillin V Allergy Unknown Rash Verified 01/27/23 11:34 Penicillins [PENICILLINS] Allergy Unknown Rash Verified 01/27/23 11:34 shellfish derived Allergy Swelling Verified 01/27/23 11:34 PMFSH Past Medical History Medical History Asthma Pneumonia Surgical History No pertinent past surgical history Family History Family History Mother Diabetes Pulmonary disease Father Medical history unknown Daughter No problems noted. Son No problems noted. Son No problems noted. Son No problems noted. Sister In good health Brother No problems noted. Social History Social History Alcohol intake: never Advance Directives: No Physical Exam ED Vital Signs: BMI result Body Mass Index 40.3 Course Course Course Narrative: RME - 52 yo male presents to the ER for evaluation of epigastric abdominal pain for the last 2 days. Worse with eating. Pain ranged 7 to 10 out of 10. Thinks it is acid which he has had trouble with before. Has not taken any medications for the pain. Plan: labs, GI cocktail, hold off on imaging for now Reevaluation(s) Reevaluation #1: patient eloped from the ER Discharge Plan Discharge Clinical Impression: Epigastric abdominal pain Patient Disposition: Elopement Prescriptions: No Action albuterol sulfate [Ventolin HFA] 90 mcg/actuation HFA aerosol inhaler 2 puff inhalation Q4-6H PRN (Reason: shortness of breath or wheezing) Qty: 1 0RF prednisone 20 mg tablet 40 mg PO DAILY 5 Days Qty: 10 0RF azithromycin 250 mg tablet See Rx Instructions .ROUTE .COMPLEX Qty: 6 0RF Rx Instructions: For 250 mg dose pack: take 500 mg today (day 1), then 250 mg for 4 days (days 2-5) benzonatate 200 mg capsule 200 mg PO TID PRN (Reason: cough) Qty: 20 0RF prednisone 20 mg tablet 40 mg PO DAILY Qty: 10 0RF Discharge Date/Time: 01/27/23 20:44
== END 2023-01-27 20:44 | disposition left against medical advice (07) ==
PROVIDERS: Emergency Provider Emergency Medicine
DX: R10.13 Epigastric pain (principal)
CPT/HCPCS: 99281

== ENCOUNTER 2023-02-19 15:34 | Emergency (ER) | payer MEDICAID, SELFPAY | END 2023-02-19 17:36 | disposition left against medical advice (07) | PROVIDERS: Emergency Provider Emergency Medicine | DX: M54.9 Dorsalgia, unspecified (principal) ==

== ENCOUNTER 2023-05-12 15:10 | Emergency (ER) | payer MEDICAID, SELFPAY ==
--- NOTE | ~2023-05-12 | CT_ITS ---
EXAMINATION: CT ABDOMEN AND PELVIS WITHOUT CONTRAST CLINICAL INFORMATION: Pain COMPARISON: Ultrasound abdomen 05/12/2023 TECHNIQUE: Multidetector volumetric imaging was performed from the superior aspect of the liver through the pubic symphysis. Sagittal and coronal reformatted images were obtained on the technologist's workstation. This CT examination was performed using dose optimization techniques as appropriate, variously including the following: *Automated exposure control *Adjustment of mA and/or kV according to patient size (this includes techniques or standardized protocols for targeted exams where dose is matched to indication/reason for exam; i.e. extremities or head) *Use of iterative reconstruction technique DLP: 656 mGy-cm FINDINGS: LUNG BASES: The visualized lung bases are unremarkable. LIVER, GALLBLADDER, AND BILIARY TREE: The liver is normal in size, shape, and attenuation. Fatty infiltration that was seen on ultrasound is not substantiated on this exam measures 53 Hounsfield units compared to the spleen which measures 37 Hounsfield units. No focal hepatic lesion or biliary ductal dilatation is present. A 5 mm calcified gallstone is seen that was not seen on the ultrasound performed earlier today. In addition, there is another calcification which may be in the wall of the gallbladder. The gallbladder is otherwise unremarkable with no evidence of pericholecystic inflammatory changes. PANCREAS: Unremarkable. SPLEEN: Unremarkable. ADRENAL GLANDS: Unremarkable. KIDNEYS AND URETERS: The kidneys are normal in size, shape, and attenuation. No hydronephrosis, hydroureter, or calculi seen. No perinephric stranding. BLADDER: Unremarkable. GASTROINTESTINAL TRACT: The small and large bowel are unremarkable aside from a few scattered colonic diverticula without diverticulitis. The appendix is unremarkable. ABDOMINAL WALL: No significant hernia is appreciated. LYMPH NODES: Normal. VASCULAR: Unremarkable. PELVIC VISCERA: The prostate and seminal vesicles are unremarkable. OSSEOUS STRUCTURES: Unremarkable. CT/CT abdomen pelvis wo IV con IMPRESSION: 1. A cause for the patient's abdominal pain has not been found. 2. Incidental note made of cholelithiasis and possible gallbladder wall calcification. Fleischner guidelines were followed.
--- NOTE | ~2023-05-12 | US_ITS ---
EXAMINATION: US ABDOMEN LIMITED CLINICAL INFORMATION: Epigastric and right upper quadrant pain. COMPARISON: None available. TECHNIQUE: Real-time imaging of the right upper quadrant abdominal viscera. FINDINGS: PANCREAS: Visualized portions unremarkable. LIVER: Mild diffuse increased hepatic echotexture without focal abnormality. GALLBLADDER: Unremarkable. COMMON BILE DUCT: Normal in caliber measuring 0.7 cm in diameter. RIGHT KIDNEY: 10.3 cm. Unremarkable. FREE FLUID: None. US/US abdomen limited IMPRESSION: Mild hepatic steatosis without other significant abnormality.
[2023-05-12 15:50] VITALS: BP 140/91; PULSE 90; RESP 18; TEMP 36.8; O2SAT 98; BMI 35.2
--- NOTE | 2023-05-12 15:50 | ED.ABDPAIN ---
HPI - Abdominal Pain General Chief Complaint: Abdominal Pain Stated Complaint: abd pain Time Seen by Provider: 05/12/23 22:02 Source: patient, RN notes reviewed and old records reviewed Mode of arrival: ambulatory Limitations: no limitations History of Present Illness HPI narrative: 52-year-old male presents for evaluation of abdominal pain, nausea Patient believes he has a history of ?acid problems. ? He reports worsening upper abdominal pain since last night. Associated nausea and vomiting x1 Reports a history of a known hiatal hernia. He feels as if he can ?feel a ball in my stomach. ? Denies any previous abdominal surgeries Denies any fevers, chills Related Data Previous Rx's Medication Instructions Recorded albuterol sulfate 90 mcg/actuation 2 puff inhalation Q4-6H PRN 08/12/20 aerosol inhaler (Ventolin HFA) shortness of breath or wheezing #1 ea prednisone 20 mg tablet 40 mg PO DAILY 5 days #10 tabs 08/12/20 azithromycin 250 mg tablet See Rx Instructions PO .COMPLEX #6 12/30/22 tabs benzonatate 200 mg capsule 200 mg PO TID PRN cough #20 caps 12/30/22 prednisone 20 mg tablet 40 mg PO DAILY #10 tabs 12/30/22 omeprazole 20 mg capsule,delayed 20 mg PO DAILY #30 caps 05/12/23 release Allergies Allergy/AdvReac Type Severity Reaction Status Date / Time penicillin V Allergy Unknown Rash Verified 01/27/23 11:34 Penicillins [PENICILLINS] Allergy Unknown Rash Verified 01/27/23 11:34 shellfish derived Allergy Swelling Verified 01/27/23 11:34 Review of Systems Constitutional: Reports as per HPI, Denies chills, Denies fatigue, Denies fever(s) and Denies headache(s) Denies headache(s) Cardiovascular: Denies chest pain and Denies dyspnea Respiratory: Denies cough and Denies dyspnea Gastrointestinal: Reports abdominal pain, Denies constipation, Reports nausea and Reports vomiting Genitourinary: Denies difficulty urinating and Denies dysuria Denies headache(s) and Denies focal weakness Endocrine: Denies fatigue PMFSH Past Medical History Medical History Asthma Pneumonia Surgical History No pertinent past surgical history Family History Family History Mother Diabetes Pulmonary disease Father Medical history unknown Daughter No problems noted. Son No problems noted. Son No problems noted. Son No problems noted. Sister In good health Brother No problems noted. Social History Social History Alcohol intake: current Alcohol intake frequency: holidays/special occasions only Alcohol type: beer Smoked in Last 30 Days: Yes Use of substances other than those prescribed or required for medical reasons: No Advance Directives: No Advance Directives Information Provided: Yes Physical Exam ED Vital Signs: Vital Signs - 24 hr 05/12/23 15:50 05/12/23 22:20 Temperature 98.3 F Pulse Rate 90 86 Respiratory Rate 18 20 Blood Pressure 140/91 H 138/85 Pulse Oximetry 98 98 Oxygen Delivery Method Room Air BMI result Body Mass Index 35.2 Const General: healthy appearing, comfortable, no acute distress, alert and awake Nutritional Appearance: well nourished Orientation/consciousness: patient oriented x3 HENMT Head: Yes normocephalic and Yes atraumatic Throat: Yes posterior oropharynx normal Eyes Eyelids: Yes eyelids normal Conjunctivae: conjunctivae normal Sclerae: sclerae normal Corneas: corneas normal Pupils: Equal, round and reactive pupils present EOM: EOMs intact bilaterally Neck Neck: Yes full ROM Resp Effort & Inspection: normal respiratory effort, able to speak in complete sentences and not labored Cardio Rate: regular rate Rhythm: regular rhythm GI Inspection: No distended Palpation (GI): Soft to palpation, not firm, Tenderness to palpation present (GI) in the epigastrum, in the LUQ and in the RUQ, no guarding and not rigid Auscultation: normoactive bowel sounds Skin General skin exam: no rashes or lesions noted and elasticity normal Neuro General: patient oriented x3 Cranial nerves: Yes Equal, round and reactive pupils present and Yes Bilaterally intact EOM present Cognition (Neuro): normal cognition Extrem Other: Moving all extremities well without any obvious deformities Course Course Course Narrative: RME: 52-year-old male with no significant past medical history presenting to the ED complaining of diffuse abdominal pain x today. Denies fever/chills, nausea/vomiting, diarrhea/constipation, urinary symptoms Abdomen soft with RUQ/epigastric tenderness, no rebound or guarding Labs, UA, ultrasound ordered Full HPI, ROS and PE to be performed by primary ED provider. Reevaluation(s) Reevaluation #1: CT scan of the abdomen pelvis shows gallstones but no other acute intra-abdominal pathology. The patient's labs are likely related to GERD. Will be discharged with omeprazole and GI follow-up Time: 23:40 Medical Decision Making Medical Decision Making [facility] Narrative: A 52-year-old male presents for evaluation of upper abdominal pain. He had labs that were ordered in triage well as an ultrasound of his gallbladder. Labs are significant for mild transaminitis an ultrasound shows mild hepatic steatosis without other significant. Patient is tender on exam. We are CT scan of the abdomen pelvis to evaluate for other it should on pathology. In meantime the patient was treated with a GI cocktail. I do feel that Cardizem most likely etiology of his symptoms Differential Diagnosis Differential Diagnoses: The differential diagnosis associated with the presentation includes Esophagitis GERD Upper abdominal pain Cholelithiasis Acute cholecystitis Peptic ulcer disease Pancreatitis Lab Data [facility] Lab Attestation statement: I reviewed the patient's lab results. No leukocytosis or significant anemia. No significant electrolyte abnormalities. The patient does have mild transaminitis with an AST of 215 and ALT of 94. 05/12/23 16:19 05/12/23 16:19 Labs: Lab Results 05/12/23 05/12/23 Range/Units 16:19 16:19 WBC 10.2 (4.8-10.8) X10*3/uL RBC 5.05 (4.60-5.80) X10*6/uL Hgb 15.1 (14.0-18.0) g/dl Hct 45.0 (42.0-52.0) % MCV 89.1 (80.0-98.0) fL MCH 29.9 (27.0-33.0) pg MCHC 33.6 (31.0-36.0) g/dl RDW 14.5 (11.0-16.0) % Plt Count 310 (160-400) X10*3/uL MPV 10.8 (9.4-12.4) fL Immature Gran % (Auto) 0.2 (0.0-0.4) % Neut % (Auto) 78.8 H (45-73) % Lymph % (Auto) 12.0 L (20-40) % Page % (Auto) 6.9 (2-11) % Eos % (Auto) 1.7 (0-4) % Baso % (Auto) 0.4 (0-2) % Lymph # (Auto) 1.2 (1.2-4.9) X10*3/uL Page # (Auto) 0.7 (0.1-1.2) X10*3/uL Eos # (Auto) 0.2 (0.0-0.4) X10*3/uL Baso # (Auto) 0.0 (0.0-0.2) X10*3/uL Abs Immat Gran (auto) 0.02 (0.00-0.03) X10*3/uL Absolute Neuts (auto) 8.1 (2.0-8.3) x10*3/uL Absolute Nucleated RBC 0.000 (0.0-0.012) X10*3/uL Nucleated RBC % (auto) 0.0 (0.0-0.2) /100WBC Sodium 142 (135-145) mmol/L Potassium 4.6 (3.3-5.1) mmol/L Chloride 109 H (96-108) mmol/L Carbon Dioxide 26 (22-29) mmol/L Anion Gap 12 (12-20) BUN 11 (9-16) mg/dL Creatinine 0.90 (0.5-1.4) mg/dL Estim Creat Clear Calc 99.8 Estimated GFR > 60 Random Glucose 104 (60-115) mg/dL Calcium 10.0 (8.4-10.2) mg/dL Magnesium 2.4 (1.6-2.6) mg/dL Total Bilirubin 1.0 (0.0-1.0) mg/dL Direct Bilirubin 0.6 H (0.0-0.5) mg/dL AST 215 H (5-37) U/L ALT 94 H (0-40) U/L Alkaline Phosphatase 106 (39-117) U/L Total Protein 8.0 (6.5-8.0) g/dL Albumin 4.4 (3.5-5.0) g/dL Lipase 36 (8-78) U/L Radiology Impression Discussion of test interpretation with radiology: I have reviewed the radiologist's reading. Radiologist Impression: Mild hepatic steatosis on ultrasound No acute intra-abdominal pathology noted Medications Administered Discontinued Medications Generic Name Dose Route Start Last Admin Trade Name Freq PRN Reason Stop Dose Admin Al Hydroxide/Mg Hydroxide 30 ml 05/12/23 22:48 05/12/23 22:57 Magnesium Hydrox/Alum Hydrox 30 Ml Oral.Susp PO 05/12/23 22:49 30 ml ONCE ONE Administration Lidocaine HCl 15 ml 05/12/23 22:48 05/12/23 22:57 Lidocaine Hcl Viscous 2 % 15 Ml Solution MUCOUS MEM 05/12/23 22:49 15 ml ONCE ONE Administration Ondansetron HCl 4 mg 05/12/23 22:48 05/12/23 22:57 Ondansetron Odt 4 Mg Tab.Rapdis TRANSLINGU 05/12/23 22:49 4 mg ONCE ONE Administration Discharge Plan Discharge Clinical Impression: Abdominal pain, Gastroesophageal reflux disease Patient Disposition: Home, Self-Care Instructions: Gastroesophageal Reflux Disease (ED) Additional Instructions: Your pain is most likely related to heartburn. Use omeprazole daily for the next 2 week Follow-up with GI, Dr. Zamudio for further evaluation management Prescriptions: New omeprazole 20 mg capsule,delayed release(DR/EC) 20 mg PO DAILY Qty: 30 0RF No Action albuterol sulfate [Ventolin HFA] 90 mcg/actuation HFA aerosol inhaler 2 puff inhalation Q4-6H PRN (Reason: shortness of breath or wheezing) Qty: 1 0RF prednisone 20 mg tablet 40 mg PO DAILY 5 Days Qty: 10 0RF azithromycin 250 mg tablet See Rx Instructions .ROUTE .COMPLEX Qty: 6 0RF Rx Instructions: For 250 mg dose pack: take 500 mg today (day 1), then 250 mg for 4 days (days 2-5) benzonatate 200 mg capsule 200 mg PO TID PRN (Reason: cough) Qty: 20 0RF prednisone 20 mg tablet 40 mg PO DAILY Qty: 10 0RF Referrals: Thanh Zamudio [Physician] - (GERD)
[2023-05-12 16:24] LABS: MANUAL DIFF FLAG NO
[2023-05-12 16:33] LABS: Basophils Percent Auto 0.4 % (0-2); Eosinophils Absolute Auto 0.2 X10*3/uL (0.0-0.4); Eosinophils Percent Auto 1.7 % (0-4); Hemoglobin 15.1 g/dl (14.0-18.0); Imm Gran Abs Auto 0.02 X10*3/uL (0.00-0.03); Imm Gran Pct Auto 0.2 % (0.0-0.4); Lymphocytes Absolute Auto 1.2 X10*3/uL (1.2-4.9); Mean Corpuscular HGB Conc 33.6 g/dl (31.0-36.0); Mean Corpuscular Hemoglobin 29.9 pg (27.0-33.0); Mean Corpuscular Volume 89.1 fL (80.0-98.0); Mean Platelet Volume 10.8 fL (9.4-12.4); Monocytes Absolute Auto 0.7 X10*3/uL (0.1-1.2); Monocytes Percent Auto 6.9 % (2-11); Neutrophils Absolute Auto 8.1 x10*3/uL (2.0-8.3); Neutrophils Percent Auto 78.8 % (45-73); Platelet Count 310 X10*3/uL (160-400); Red Blood Count 5.05 X10*6/uL (4.60-5.80); Red Cell Distribution Width 14.5 % (11.0-16.0); White Blood Count 10.2 X10*3/uL (4.8-10.8)
[2023-05-12 16:49] LABS: Alanine Aminotransferase 94 U/L (0-40); Albumin Level 4.4 g/dL (3.5-5.0); Alkaline Phosphatase 106 U/L (39-117); Anion Gap 12 (12-20); Aspartate Amino Transferase 215 U/L (5-37); Bilirubin Direct 0.6 mg/dL (0.0-0.5); Blood Urea Nitrogen 11 mg/dL (9-16); Carbon Dioxide 26 mmol/L (22-29); Chloride 109 mmol/L (96-108); Creatinine Clr Calc Pharmacy 99.8; Estimated Glomerular Filt Rate > 60; Glucose Random 104 mg/dL (60-115); Lipase 36 U/L (8-78); Magnesium 2.4 mg/dL (1.6-2.6); Potassium 4.6 mmol/L (3.3-5.1); Sodium 142 mmol/L (135-145)
[2023-05-12 22:20] VITALS: BP 138/85; PULSE 86; RESP 20; O2SAT 98
[2023-05-12] MEDS: Lidocaine HCl Viscous 2 % 15 ML SOLUTION MUCOUS MEM (22:57)
[2023-05-12] MEDS: Ondansetron ODT 4 MG TAB.RAPDIS TRANSLINGU (22:57)
[2023-05-12] MEDS: Magnesium Hydrox/Alum Hydrox 30 ML ORAL.SUSP PO (22:57)
--- NOTE | 2023-05-12 23:13 | PC.NURSE ---
Pt A&Ox4, pt reports diffuse abd pain and right hip pain, states it is worse when coughing. Pt states improvement in pain with rest. Medication given per NOV. VSS. WCTM
== END 2023-05-12 23:54 | disposition home or self-care (01) ==
PROVIDERS: Physician Assistant; Emergency Provider Internal Medicine
DX: R10.10 Upper abdominal pain, unspecified (principal); K21.9 Gastro-esophageal reflux disease without esophagitis
CPT/HCPCS: 36415; 74176; 76705; 80048; 80076; 83690; 83735; 85025; 99284

== ENCOUNTER 2023-12-01 11:33 | Emergency (ER) | payer MEDICAID, SELFPAY ==
[2023-12-01 12:07] VITALS: BP 185/89; PULSE 80; RESP 19; TEMP 36.6; O2SAT 98
--- NOTE | 2023-12-01 12:17 | ED_ITS ---
HPI - Male Genitourinary General Chief complaint: Urogenital-Male Stated complaint: says something private Time Seen by Provider: 12/01/23 13:42 Source: patient Mode of arrival: ambulatory Limitations: language barrier History of Present Illness HPI Narrative: 53 year old male with no significant medical history presents to the emergency department for complaints of swelling to the penis. He states he noted the s welling after sexual intercourse with his girlfriend. He denies any pain, penile discharge or difficulty with urination. He denies any trauma to the penis. Related Data Previous Rx's ?Medication ?Instructions ?Recorded albuterol sulfate 90 mcg/actuation 2 puff inhalation Q4-6H PRN 08/12/20 aerosol inhaler (Ventolin HFA) shortness of breath or wheezing #1 ea prednisone 20 mg tablet 40 mg (2 x 20 mg) PO DAILY 5 days 08/12/20 #10 tabs azithromycin 250 mg tablet See Rx Instructions PO .COMPLEX #6 12/30/22 tabs benzonatate 200 mg capsule 200 mg PO TID PRN cough #20 caps 12/30/22 prednisone 20 mg tablet 40 mg (2 x 20 mg) PO DAILY #10 tabs 12/30/22 omeprazole 20 mg capsule,delayed 20 mg PO DAILY #30 caps 05/12/23 release doxycycline monohydrate 100 mg 100 mg PO BID 7 days #14 caps 12/01/23 capsule Allergies Allergy/AdvReac Type Severity Reaction Status Date / Time penicillin V Allergy Unknown Rash Verified 01/25/24 05:49 Penicillins [PENICILLINS] Allergy Unknown Rash Verified 01/25/24 05:49 shellfish derived Allergy Swelling Verified 01/25/24 05:49 Review of Systems Review of Systems: Yes all other systems are reviewed and are negative [facility] Past Medical History Medical History Pneumonia Asthma Surgical History No pertinent past surgical history Family History Family History Mother Diabetes Pulmonary disease Father Medical history unknown Daughter No problems noted. Son No problems noted. Son No problems noted. Son No problems noted. Sister In good health Brother No problems noted. Social History Social History Alcohol intake: current Alcohol intake frequency: holidays/special occasions only Alcohol type: beer Smoked in Last 30 Days: No Use of substances other than those prescribed or required for medical reasons: No Advance Directives: No Advance Directives Information Provided: No Do you have a plan to hurt others: No Plan Physical Exam Vital Signs: Vital Signs: Last Vital Signs Temp 98 F 12/01/23 12:07 Pulse 80 12/01/23 12:07 Resp 19 12/01/23 12:07 BP 185/89 H 12/01/23 12:07 Pulse Ox 98 12/01/23 12:07 O2 Del Method Room Air 12/01/23 12:07 BMI result Body Mass Index 30.0 Nursing notes and vital signs reviewed. GENERAL APPEARANCE: A&0 x 4, generally well appearing, no acute distress HENMT: Normal to inspection, atraumatic, face symmetrical. Normal external ears, nose, and oropharynx clear. NECK: Supple without stiffness or restricted ROM. HEART: Normal rate and regular rhythm, normal S1/S2, no M/R/G LUNGS: LS CTA, moving air well. Able to speak in complete sentences. No crackles, wheezes, or rhonchi auscultated BACK: No CVAT, no obvious deformity EXTREMITIES: Moving all extremities without difficulty. Normal capillary refill. NEUROLOGICAL: Alert and oriented, moving all 4 extremities with equal strength. CN not formally tested but appearing grossly intact. Observed to ambulate with normal gait. 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 He reports he has never had this in the past and denies having STDs in the past. Denies any other symptoms complaints or concerns at this time. Plan: UA and gonorrhea chlamydia culture ordered at this time patient will be [place] [facility] [place] for further evaluation treatment. Medications Administered Discontinued Medications Generic Name Dose Route Start Last Admin Trade Name Maricel PRN Reason Stop Dose Admin Ceftriaxone Sodium 500 mg/ 0 mg 12/01/23 14:04 12/01/23 14:19 Lidocaine HCl 1 ml IM 12/01/23 14:05 1 kit ONCE ONE Administration Doxycycline Monohydrate 100 mg 12/01/23 14:04 12/01/23 14:19 Doxycycline Monohydrate 100 Mg Capsule PO 12/01/23 14:05 100 mg ONCE ONE Administration Medical Decision Making Medical Decision Making MDM Narrative: Old records reviewed for previous imaging, lab studies, ECGs, and notes. Patient was assessed the emergency department with no acute distress or toxicity noted. Shaft of penis edematous with no evidence of acute trauma or penile discharge. Edema most likely due to recent intercourse with low suspicion for balanitis, penile fracture, paraphimosis, priapism. GC chlamydia sent to rule out STIs. Prophylactic ceftriaxone and doxycycline given with doxycycline sent to patient's preferred pharmacy. Patient educated that we will contact him with results if they are positive. Patient educated to return immediately to the emergency department with increased swelling or difficulty with urination. Patient is safe for discharge at this time with plan for [id number] Tylenol and/or NSAID such as ibuprofen or naproxen for fever/discomfort with dosing as per packaging. HPI, PE, diagnostics, and plan discussed with patient and family with no unanswered questions at this time. Strict return precautions given to return to the emergency department with new, worsening, or concerning emergent symptoms. Recommended to follow-up with there primary care provider in 24-48 hours for further treatment and management. Differential Diagnosis Differential Diagnoses: The differential diagnosis associated with the presentation includes But not limited to balanitis, paraphimosis, phimosis, penile trauma, penile fracture Lab Data Labs: Lab Results 12/01/23 Range/Units 12:29 Urine Color Yellow Urine Appearance Clear Urine pH 6.0 (5.0-9.0) Ur Specific Riva 1.025 (1.005-1.025) Urine Protein Negative (Neg-Trace) mg/dL Urine Glucose (UA) Negative (Negative) mg/dL Urine Ketones Negative (Negative) mg/dL Urine Blood Negative (Negative) Urine Nitrite Negative (Negative) Ur Leukocyte Esterase Trace H (Negative) Urine RBC 0-2 (0-2) /HPF Urine WBC 0-5 (0-5) /HPF Ur Squamous Epith Cells 0-2 (0-2) /HPF Urine Bacteria None Seen (None Seen) Hyaline Casts 0-2 (0-2) /LPF Chlam trachomat DNA PCR NOT DETECTED (Not Detect.) N.gonorrhoeae DNA (PCR) NOT DETECTED (Not Detect.) Discharge Plan Discharge Clinical Impression: Swelling of penis Patient Disposition: Home, Self-Care Instructions: Doxycycline (By mouth), Ceftriaxone (By injection), Safe Sex Practices (ED), Acute Paraphimosis (ED) Prescriptions: New doxycycline monohydrate 100 mg capsule 100 mg PO BID 7 Days Qty: 14 0RF No Action albuterol sulfate [Ventolin HFA] 90 mcg/actuation HFA aerosol inhaler 2 puff inhalation Q4-6H PRN (Reason: shortness of breath or wheezing) Qty: 1 0RF prednisone 20 mg tablet 40 mg PO DAILY 5 Days Qty: 10 0RF azithromycin 250 mg tablet See Rx Instructions .ROUTE .COMPLEX Qty: 6 0RF Rx Instructions: For 250 mg dose pack: take 500 mg today (day 1), then 250 mg for 4 days (days 2-5) benzonatate 200 mg capsule 200 mg PO TID PRN (Reason: cough) Qty: 20 0RF prednisone 20 mg tablet 40 mg PO DAILY Qty: 10 0RF omeprazole 20 mg capsule,delayed release(DR/EC) 20 mg PO DAILY Qty: 30 0RF Referrals: [facility] [Primary Care Provider] - Stand Alone Forms: Work/School Release Interventions: ED Discharge Assessment Last Done: 12/01/23 14:24 Discharge Date/Time: 12/01/23 14:24 Print Language: Bhutanese
[2023-12-01 12:52] LABS: Appearance Urine Clear; Color Urine Yellow; Glucose Urine UA Negative (Negative); Leukocyte Esterase Urine Trace (Negative); Nitrite Urine Negative (Negative); Specific Gravity - Urine 1.025 (1.005-1.025); UMIC TRIGGER UACC YES; Urine Blood Negative (Negative); Urine Ketones Negative (Negative); Urine Protein Negative (Neg-Trace)
[2023-12-01 12:57] LABS: Bacteria Urine None Seen (None Seen); Hyaline Casts Urine 0-2 /LPF (0-2); RBC Urine 0-2 /HPF (0-2); Squamous Epithelial Cell Urine 0-2 /HPF (0-2); WBC Urine 0-5 /HPF (0-5)
[2023-12-01] MEDS: Doxycycline Monohydrate 100 MG CAPSULE PO (14:19)
[2023-12-01] MEDS: cefTRIAXone sodium 500 MG, Lidocaine HCl 1 % MPF 1 ML IM (14:19)
[2023-12-01 14:22] LABS: CT PCR NOT DETECTED (Not Detect.); NG PCR NOT DETECTED (Not Detect.)
== END 2023-12-01 14:24 | disposition home or self-care (01) ==
PROVIDERS: Physician Assistant Medical; Emergency Provider Emergency Medicine
DX: N48.89 Other specified disorders of penis (principal)
CPT/HCPCS: 0353U; 81001; 96372; 99282; 99284; J0696

== ENCOUNTER 2024-01-25 05:23 | Emergency (ER) | payer MEDICAID, SELFPAY ==
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
[2024-01-25 05:46] VITALS: BP 120/80; BP 122/66; PULSE 68; PULSE 74; RESP 16; TEMP 36.6; O2SAT 97; O2SAT 99; BMI 26.9
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
[2024-01-25 06:16] LABS: Basophils Absolute Auto 0.1 X10*3/uL (0.0-0.2); Basophils Percent Auto 0.9 % (0-2); Eosinophils Absolute Auto 0.4 X10*3/uL (0.0-0.4); Hematocrit 43.6 % (42.0-52.0); Hemoglobin 15.4 g/dl (14.0-18.0); Imm Gran Abs Auto 0.02 X10*3/uL (0.00-0.03); Imm Gran Pct Auto 0.3 % (0.0-0.4); Lymphocytes Absolute Auto 1.5 X10*3/uL (1.2-4.9); Lymphocytes Percent Auto 21.4 % (20-40); MANUAL DIFF FLAG NO; Mean Corpuscular HGB Conc 35.3 g/dl (31.0-36.0); Mean Corpuscular Volume 87.9 fL (80.0-98.0); Mean Platelet Volume 9.7 fL (9.4-12.4); Monocytes Absolute Auto 0.7 X10*3/uL (0.1-1.2); Monocytes Percent Auto 9.2 % (2-11); Neutrophils Absolute Auto 4.4 x10*3/uL (2.0-8.3); Neutrophils Percent Auto 62.2 % (45-73); Platelet Count 290 X10*3/uL (160-400); Red Blood Count 4.96 X10*6/uL (4.60-5.80); Red Cell Distribution Width 13.8 % (11.0-16.0); White Blood Count 7.1 X10*3/uL (4.8-10.8)
--- NOTE | 2024-01-25 06:17 | PC.NURSE ---
20G placed in right hand, pt transported to CT at this time.
[2024-01-25 06:34] LABS: Ethanol < 10 mg/dL
[2024-01-25 06:36] LABS: Alanine Aminotransferase 19 U/L (0-40); Alkaline Phosphatase 97 U/L (39-117); Anion Gap 14 (12-20); Aspartate Amino Transferase 40 U/L (5-37); Bilirubin Direct 0.1 mg/dL (0.0-0.5); Bilirubin Total 0.3 mg/dL (0.0-1.0); Blood Urea Nitrogen 8 mg/dL (9-16); Calcium 9.3 mg/dL (8.4-10.2); Carbon Dioxide 22 mmol/L (22-29); Chloride 107 mmol/L (96-108); Creatinine Clr Calc Pharmacy 101.2; Estimated Glomerular Filt Rate > 60; Glucose Random 119 mg/dL (60-115); Magnesium 2.3 mg/dL (1.6-2.6); Potassium 3.9 mmol/L (3.3-5.1); Sodium 139 mmol/L (135-145); Total Protein 7.4 g/dL (6.5-8.0)
[2024-01-25 06:44] LABS: Troponin-I High Sensitivity < 2.7 ng/L (<3.5-35.0)
[2024-01-25 07:05] VITALS: BP 120/70; PULSE 75; RESP 15; TEMP 36.8; O2SAT 97
--- NOTE | 2024-01-25 07:23 | PC.NURSE ---
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 PT IS A VERY DEEP/HEAVY SNORER. PT DENIES ANY PAIN/DISC. PT HAS A GPS ANKLE TRACKING DEVICE TO R ANKLE. VSS. WILL CONTINUE TO MONITOR.
[2024-01-25 08:26] VITALS: BP 126/74; PULSE 72; RESP 12; TEMP 36.5; O2SAT 96
--- NOTE | 2024-01-25 08:30 | MHC.EDTECH ---
Patient has drink and food.
[2024-01-25 08:57] LABS: Amphetamine Screen Urine Not Detected (Not Detect); Barbiturates, Urine Not Detected (Not Detect); Benzodiazepines Screen Urine Not Detected (Not Detect); Cannabinoid Screen Urine Not Detected (Not Detect); Cocaine Screen Urine POSITIVE (Not Detect); Fentanyl, urine Not Detected (Not Detect); Methadone Screen, Urine Not Detected (Not Detect); Opiate Screen Urine Not Detected (Not Detect); Oxycodone Screen Urine Not Detected (Not Detect); Phencyclidine Screen Urine Not Detected (Not Detect)
[2024-01-25 09:14] LABS: Buprenorphine Scr Not Detected (Not Detect)
[2024-01-25 09:35] VITALS: BP 118/71; PULSE 77; RESP 16; TEMP 36.5; O2SAT 95
--- NOTE | 2024-01-25 09:50 | PC.NURSE ---
PT AMB (I) GAIT STEADY 100FT. AWARE. PT TO BE D/C'D HOME.
[2024-01-25 10:10] VITALS: BP 118/71; PULSE 77; RESP 16; TEMP 36.5; O2SAT 95
== END 2024-01-25 10:20 | disposition home or self-care (01) ==
PROVIDERS: Emergency Medicine; Emergency Provider Student in an Organized Health Care Education/Training Program
DX: Z04.1 Encounter for examination and observation following transport accident (principal)
CPT/HCPCS: 36415; 70450; 72125; 80048; 80076; 80307; 83735; 84484; 85025; 99284

== ENCOUNTER 2024-12-12 15:14 | Emergency (ER) | payer MEDICAID, SELFPAY ==
[2024-12-12 15:29] VITALS: BP 134/71; PULSE 112; RESP 16; TEMP 36.7; O2SAT 96; BMI 30.6
--- NOTE | 2024-12-12 15:34 | ED.BACK ---
HPI - Back Pain/Injury General Chief Complaint: Back Pain/Injury Stated Complaint: inflammed tailbone? Time Seen by Provider: 12/12/24 16:17 Source: patient, RN notes reviewed and old records reviewed Mode of arrival: ambulatory Limitations: no limitations History of Present Illness ED Provider: Domi DAILEY Narrative: 54-year-old male presents for evaluation of pain to his tailbone. He reports he has been unable to sit down due to the lump above his buttocks. The patient reports that just prior to my evaluation? it popped and is draining. ? Denies any fevers or chills. Reports his pain is significantly improved since the lump started to drain Related Data Previous Rx's ?Medication ?Instructions ?Recorded albuterol sulfate 90 mcg/actuation 2 puff inhalation Q4-6H PRN 08/12/20 aerosol inhaler (Ventolin HFA) shortness of breath or wheezing #1 ea prednisone 20 mg tablet 40 mg (2 x 20 mg) PO DAILY 5 days 08/12/20 #10 tabs azithromycin 250 mg tablet See Rx Instructions PO .COMPLEX #6 12/30/22 tabs benzonatate 200 mg capsule 200 mg PO TID PRN cough #20 caps 12/30/22 prednisone 20 mg tablet 40 mg (2 x 20 mg) PO DAILY #10 tabs 12/30/22 omeprazole 20 mg capsule,delayed 20 mg PO DAILY #30 caps 05/12/23 release doxycycline monohydrate 100 mg 100 mg PO BID 7 days #14 caps 12/01/23 capsule cephalexin 500 mg tablet 500 mg PO QID #28 tabs 12/12/24 Allergies Allergy/AdvReac Type Severity Reaction Status Date / Time penicillin V Allergy Unknown Rash Verified 12/12/24 15:32 Penicillins [PENICILLINS] Allergy Unknown Rash Verified 12/12/24 15:32 shellfish derived Allergy Swelling Verified 12/12/24 15:32 Review of Systems Constitutional: Constitutional: Denies body ache(s), Denies chills and Denies fever(s) Eyes: Eyes: Denies blurry vision Musculoskeletal: Musculoskeletal: Denies back pain Integumentary/Breasts: Skin/Breast: Reports skin swelling Psychiatric: Psychiatric: Denies anxiety PMFSH Past Medical History Medical History Pneumonia Asthma Surgical History No pertinent past surgical history Family History Family History Mother Diabetes Pulmonary disease Father Medical history unknown Daughter No problems noted. Son No problems noted. Son No problems noted. Son No problems noted. Sister In good health Brother No problems noted. Social History Social History Alcohol intake: current Alcohol intake frequency: holidays/special occasions only Alcohol type: beer Advance Directives: No Advance Directives Information Provided: Yes Physical Exam Vital Signs: Vital Signs: Last Vital Signs Temp 98.1 F 12/12/24 15:29 Pulse 112 H 12/12/24 15:29 Resp 16 12/12/24 15:29 BP 134/71 12/12/24 15:29 Pulse Ox 96 12/12/24 15:29 O2 Del Method Room Air 12/12/24 15:29 BMI result Body Mass Index 30.6 Const: General: healthy appearing, comfortable, no acute distress, alert and awake Nutritional Appearance: well nourished Orientation/consciousness: patient oriented x3 HEENT: Head: Yes normocephalic and Yes atraumatic Eyes: Eyelids: Yes eyelids normal Conjunctivae: conjunctivae normal Sclerae: sclerae normal Corneas: corneas normal Pupils: Equal, round and reactive pupils present EOM: EOMs intact bilaterally Neck: Neck: Yes full ROM Cardio: Rate: regular rate Rhythm: regular rhythm Skin: Other: Patient has some induration just above the gluteal cleft. There is minimal erythema, there is no obvious or significant purulent drainage. There is no fluctuance. The area is tender to palpation General skin exam: elasticity normal Neuro: General: patient oriented x3 Cranial nerves: Yes Equal, round and reactive pupils present and Yes Bilaterally intact EOM present Cognition (Neuro): normal cognition Course Course Course Narrative: This is a Rapid Medical Examination (RME) performed by Nafisa Michael PA-C in triage. Full HPI, ROS, assessment and treatment plan per primary provider in the Main ED. 54 yo male presenting to the ER for evaluation of coccyx pain since yesterday. unsure if he was laying on a tool while laying under a car fixing things yesterday. Plan: exam in [facility] Medical Decision Making Medical Decision Making MDM Narrative: 54-year-old male presents for evaluation of a painful lump just above his buttocks. He appears to have a pilonidal abscess. The abscess but numbness own just prior to my evaluation. He cleaned it off and there is no active drainage. The patient is not septic. I do not see any indication for further incision and drainage. We will treat with antibiotics and warm compresses. Differential Diagnosis Differential Diagnoses: The differential diagnosis associated with the presentation includes Abscess Cellulitis Pilonidal cyst Sebaceous cyst Discharge Plan Discharge Clinical Impression: Pilonidal cyst Patient Disposition: Home, Self-Care Instructions: Pilonidal Cyst (ED) Additional Instructions: You appear to have a small abscess above your buttocks Lie warm compresses every 4 hours for 10-15 minutes. Take the cephalexin 4 times daily for the next week. Return for new or worsening symptoms Prescriptions: New cephalexin 500 mg tablet 500 mg PO QID Qty: 28 0RF No Action albuterol sulfate [Ventolin HFA] 90 mcg/actuation HFA aerosol inhaler 2 puff inhalation Q4-6H PRN (Reason: shortness of breath or wheezing) Qty: 1 0RF prednisone 20 mg tablet 40 mg PO DAILY 5 Days Qty: 10 0RF azithromycin 250 mg tablet See Rx Instructions .ROUTE .COMPLEX Qty: 6 0RF Rx Instructions: For 250 mg dose pack: take 500 mg today (day 1), then 250 mg for 4 days (days 2-5) benzonatate 200 mg capsule 200 mg PO TID PRN (Reason: cough) Qty: 20 0RF prednisone 20 mg tablet 40 mg PO DAILY Qty: 10 0RF omeprazole 20 mg capsule,delayed release(DR/EC) 20 mg PO DAILY Qty: 30 0RF doxycycline monohydrate 100 mg capsule 100 mg PO BID 7 Days Qty: 14 0RF Print Language: Choose Not To Answer
[2024-12-12 16:46] VITALS: BP 115/77; PULSE 106; RESP 18; TEMP 36.7; O2SAT 93
[2024-12-12 16:48] VITALS: BP 115/77; PULSE 106; RESP 18; TEMP 36.7; O2SAT 93
== END 2024-12-12 16:49 | disposition home or self-care (01) ==
PROVIDERS: Emergency Provider Emergency Medicine
DX: L05.91 Pilonidal cyst without abscess (principal)
CPT/HCPCS: 99283

== ENCOUNTER 2025-02-16 02:37 | Emergency (ER) | payer MEDICAID, SELFPAY ==
[2025-02-16 02:40] VITALS: BP 108/85; PULSE 96; RESP 18; TEMP 36.9; O2SAT 99; BMI 30.9
--- NOTE | 2025-02-16 03:12 | ED_ITS ---
HPI - General Adult General Chief complaint: Animal Bite Stated complaint: bee sting left hand Time Seen by Provider: 02/16/25 03:12 History of Present Illness ED Provider: Rebecca DAILEY narrative: The patient is a 54-year-old male who says that 2 days ago he had some kind of an insect bite to his left middle finger. He does not know what the insect was. He says that at first he has a lot of itchiness and irritation to the finger. There was redness and swelling. He says he has since developed pain in addition to the itchiness and he was worried that the finger might be infected and so he came to the emergency room. No fevers. Related Data Previous Rx's ?Medication ?Instructions ?Recorded albuterol sulfate 90 mcg/actuation 2 puff inhalation Q4-6H PRN 08/12/20 aerosol inhaler (Ventolin HFA) shortness of breath or wheezing #1 ea prednisone 20 mg tablet 40 mg (2 x 20 mg) PO DAILY 5 days 08/12/20 #10 tabs azithromycin 250 mg tablet See Rx Instructions PO .COMPLEX #6 12/30/22 tabs benzonatate 200 mg capsule 200 mg PO TID PRN cough #20 caps 12/30/22 prednisone 20 mg tablet 40 mg (2 x 20 mg) PO DAILY #10 tabs 12/30/22 omeprazole 20 mg capsule,delayed 20 mg PO DAILY #30 caps 05/12/23 release doxycycline monohydrate 100 mg 100 mg PO BID 7 days #14 caps 12/01/23 capsule cephalexin 500 mg tablet 500 mg PO QID #28 tabs 12/12/24 acetaminophen 500 mg capsule 1,000 mg (2 x 500 mg) PO Q8H PRN 02/16/25 fever or pain #14 caps cefuroxime axetil 500 mg tablet 500 mg PO BID #16 tabs 02/16/25 doxycycline monohydrate 100 mg 100 mg PO BID #16 caps 02/16/25 capsule hydroxyzine HCl 50 mg tablet 50 mg PO TID PRN itching #10 tabs 02/16/25 ibuprofen 400 mg tablet 400 mg PO Q6H PRN pain #14 tabs 02/16/25 Allergies Allergy/AdvReac Type Severity Reaction Status Date / Time penicillin V Allergy Unknown Rash Verified 02/16/25 02:42 Penicillins [PENICILLINS] Allergy Unknown Rash Verified 02/16/25 02:42 shellfish derived Allergy Swelling Verified 02/16/25 02:42 Review of Systems 2 Review of Systems: Yes all other systems are reviewed and are negative [facility] Past Medical History Medical History Pneumonia Asthma Surgical History No pertinent past surgical history Family History Family History Mother Diabetes Pulmonary disease Father Medical history unknown Daughter No problems noted. Son No problems noted. Son No problems noted. Son No problems noted. Sister In good health Brother No problems noted. Social History Social History Alcohol intake: current Alcohol intake frequency: holidays/special occasions only Alcohol type: beer Advance Directives: No Do you have a plan to hurt others: No Plan Physical Exam ED Vital Signs: Vital Signs - 24 hr 02/16/25 02:40 02/16/25 03:54 Temperature 98.5 F 98.7 F Pulse Rate 96 77 Respiratory Rate 18 16 Blood Pressure 108/85 134/78 Pulse Oximetry 99 98 Oxygen Delivery Method Room Air Room Air BMI result Body Mass Index 30.9 Const Other: The patient is a 54-year-old male who was awake and alert. He does not seem in acute distress or toxic. HENMT Other: Face is symmetrical, mucous membranes moist Eyes General: appearance normal, both eyes and all related structures Neck Neck: Yes normal visual inspection and Yes full ROM Resp Effort & Inspection: normal respiratory effort Auscultation: clear to auscultation bilaterally Cardio Rate: regular rate Rhythm: regular rhythm Heart sounds: S1 normal heart sound present, S2 normal heart sound present and Murmur heart sound present (No murmur heard) Skin Other: There is swelling to the proximal portion of the left middle finger. This is more on the radial side of the proximal phalanx. There is tiny spot that might represent the site of an insect bite. The erythema does not extend proximal to the MCP joint and does not extend as far as the PIP joint. There is no lymphangitis. Neuro Other: The patient is awake and alert. Cranial nerves are grossly intact. He has grossly intact strength and sensation. Gait is steady. Extrem Other: There is redness and swelling at the proximal left third finger. There is no tenderness along the course of the flexor tendon of the 3rd finger. The patient is able to flex and extend the finger but his range of motion is mildly diminished. No significant pain with passive extension of the finger. Medications Administered Discontinued Medications Generic Name Dose Route Start Last Admin Trade Name Freq PRN Reason Stop Dose Admin Cefuroxime Axetil 500 mg 02/16/25 03:23 02/16/25 03:50 Cefuroxime Axetil 500 Mg Tablet PO 02/16/25 03:24 500 mg ONCE ONE Administration Doxycycline Monohydrate 100 mg 02/16/25 03:22 02/16/25 03:50 Doxycycline Monohydrate 100 Mg Capsule PO 02/16/25 03:23 100 mg ONCE ONE Administration Hydroxyzine HCl 50 mg 02/16/25 03:22 02/16/25 03:50 Hydroxyzine Hcl 50 Mg Tablet PO 02/16/25 03:23 50 mg ONCE ONE Administration Ibuprofen 400 mg 02/16/25 03:22 02/16/25 03:50 Ibuprofen 400 Mg Tablet PO 02/16/25 03:23 400 mg ONCE ONE Administration Medical Decision Making Medical Decision Making MDM Narrative: The patient is a 54-year-old male who has what looks like an insect bite to the proximal portion of the left middle finger. There may be some degree of an infection associated with this insect bite. I do not think there is any acute surgical infection . No joint or tendon infection. He will be started on cefuroxime and doxycycline as antibiotics. Hydroxyzine for itchiness. Discharge Plan Discharge Clinical Impression: Cellulitis of finger of left hand, Insect bite of finger Patient Disposition: Home, Self-Care Additional Instructions: Please take the antibiotics, cefuroxime, and doxycycline, 2 times a day as prescribed. Please finish the complete course of the antibiotics. You may use ibuprofen and acetaminophen as needed for pain. These has been prescribed as well. For itchiness you may use the prescribed hydroxyzine. Do not drive in his medication. It can make you drowsy. Keep the hand elevated to reduce swelling and pain. Please follow up soon at the [facility] for a recheck. If significantly worse return to the emergency room. Prescriptions: New ibuprofen 400 mg tablet 400 mg PO Q6H PRN (Reason: pain) Qty: 14 0RF acetaminophen 500 mg capsule 1,000 mg PO Q8H PRN (Reason: fever or pain) Qty: 14 0RF doxycycline monohydrate 100 mg capsule 100 mg PO BID Qty: 16 0RF cefuroxime axetil 500 mg tablet 500 mg PO BID Qty: 16 0RF hydroxyzine HCl 50 mg tablet 50 mg PO TID PRN (Reason: itching) Qty: 10 0RF No Action albuterol sulfate [Ventolin HFA] 90 mcg/actuation HFA aerosol inhaler 2 puff inhalation Q4-6H PRN (Reason: shortness of breath or wheezing) Qty: 1 0RF prednisone 20 mg tablet 40 mg PO DAILY 5 Days Qty: 10 0RF azithromycin 250 mg tablet See Rx Instructions .ROUTE .COMPLEX Qty: 6 0RF Rx Instructions: For 250 mg dose pack: take 500 mg today (day 1), then 250 mg for 4 days (days 2-5) benzonatate 200 mg capsule 200 mg PO TID PRN (Reason: cough) Qty: 20 0RF prednisone 20 mg tablet 40 mg PO DAILY Qty: 10 0RF omeprazole 20 mg capsule,delayed release(DR/EC) 20 mg PO DAILY Qty: 30 0RF doxycycline monohydrate 100 mg capsule 100 mg PO BID 7 Days Qty: 14 0RF cephalexin 500 mg tablet 500 mg PO QID Qty: 28 0RF Interventions: ED Discharge Assessment Last Done: 02/16/25 03:54 Discharge Date/Time: 02/16/25 03:54 Print Language: Macedonian
[2025-02-16] MEDS: Doxycycline Monohydrate 100 MG CAPSULE PO (03:50)
[2025-02-16] MEDS: hydrOXYzine HCL 50 MG TABLET PO (03:50)
[2025-02-16] MEDS: cefuroxime axetiL 500 MG TABLET PO (03:50)
[2025-02-16] MEDS: Ibuprofen 400 MG TABLET PO (03:50)
[2025-02-16 03:54] VITALS: BP 134/78; PULSE 77; RESP 16; TEMP 37.1; O2SAT 98
== END 2025-02-16 03:54 | disposition home or self-care (01) ==
PROVIDERS: Emergency Provider Emergency Medicine
DX: L03.012 Cellulitis of left finger (principal); S60.463A Insect bite (nonvenomous) of left middle finger, initial encounter; W57.XXXA Bitten or stung by nonvenomous insect and other nonvenomous arthropods, initial encounter; M79.645 Pain in left finger(s); Y93.9 Activity, unspecified; Y92.9 Unspecified place or not applicable; Y99.9 Unspecified external cause status
CPT/HCPCS: 99283

== ENCOUNTER 2025-07-08 02:49 | Emergency (ER) | payer MEDICAID, SELFPAY ==
--- NOTE | ~2025-07-08 | XR_ITS ---
CLINICAL HISTORY: sob 1 view chest x-ray. Comparison: None provided Findings: The lungs appear clear. There is no consolidation, effusion, or pneumothorax. Cardiomediastinal silhouette is within normal limits. IMPRESSION: No acute cardiopulmonary abnormality. This document has been electronically signed by: Blayne Combs MD on 07/08/2025 04:08:15
[2025-07-08 02:52] VITALS: BP 134/76; PULSE 86; O2SAT 97; BMI 30.4
[2025-07-08 02:58] VITALS: BP 117/68; PULSE 97; RESP 18; TEMP 36.9; O2SAT 95
--- NOTE | 2025-07-08 03:05 | ED.GENADULT ---
HPI - General Adult General Chief complaint: Dyspnea Stated complaint: SOB, HX OF ASHMA Time Seen by Provider: 07/08/25 02:54 Source: patient Limitations: language barrier History of Present Illness ED Provider: Gege Burger PA-C HPI narrative: 55M with past medical history of asthma, pulmonary fibrosis, tobacco use BIBA for dyspnea. Patient is a poor historian, dozing off during interview. States difficulty breathing started an hour ago. Endorsing cough for the last few days, no fever/chills. States his inhlaer has been helping but he lost it yesterday. Related Data Previous Rx's ?Medication ?Instructions ?Recorded albuterol sulfate 90 mcg/actuation 2 puff inhalation Q4-6H PRN 07/08/25 aerosol inhaler (Ventolin HFA) shortness of breath or wheezing #8.5 grams azithromycin 250 mg tablet 250 mg PO DAILY 4 days #4 tabs 07/08/25 prednisone 20 mg tablet 40 mg (2 x 20 mg) PO DAILY #8 tabs 07/08/25 Allergies Allergy/AdvReac Type Severity Reaction Status Date / Time No Known Allergies Allergy Verified 07/08/25 02:56 Review of Systems Review of Systems: Yes all other systems are reviewed and are negative Constitutional: Constitutional: Denies chills and Denies fever(s) Comments: drowsiness Cardiovascular: Cardiovascular: Denies chest pain and Reports dyspnea Respiratory: Respiratory: Reports cough and Reports dyspnea Gastrointestinal: Gastrointestinal: Denies abdominal pain PMFSH Past Medical History Attestation statement: The following information was validated with the patient. Social History Social History Smoked in Last 30 Days: Yes Use of substances other than those prescribed or required for medical reasons: Yes Substance Use Type: Crack/Cocaine Physical Exam ED Vital Signs: Vital Signs - 24 hr 07/08/25 02:58 07/08/25 03:21 07/08/25 04:37 Temperature 98.5 F 98.2 F Pulse Rate 97 92 88 Respiratory Rate 18 18 18 Blood Pressure 117/68 106/53 L Pulse Oximetry 95 96 Oxygen Delivery Method Room Air Room Air BMI result Body Mass Index 30.4 Const Other: lethargic but easily arousable General: cooperative and poor hygiene; No diaphoretic Nutritional Appearance: average body habitus Orientation/consciousness: patient oriented x3 HENMT Head: Yes normocephalic and Yes atraumatic Resp Other: Expiratory wheezes noted posterior caldwell nonlabored respiration Effort & Inspection: not able to speak in complete sentences, audible wheezes and Actively coughing Auscultation: wheezes Cardio Other: Normal peripheral perfusion Rate: regular rate Rhythm: regular rhythm Skin Other: Warm dry no rash Neuro General: patient oriented x3, no focal motor deficits and CN's II-XI intact bilaterally Psych Other: Cooperative Speech and movement: Slurred speech present Attitude: cooperative Course Course Course Narrative: I Gege Burger obtain a history performed the physical and assessment of the patient. Jennie MENDOZA helped to formulate the documentation Medications Administered Discontinued Medications Generic Name Dose Route Start Last Admin Trade Name Freq PRN Reason Stop Dose Admin Albuterol Sulfate 5 mg/ 0 mg 07/08/25 03:05 07/08/25 03:19 Albuterol/Ipratropium 3 ml INHALE 07/08/25 03:06 1 each ONCE ONE Administration Prednisone 40 mg 07/08/25 03:05 07/08/25 03:18 Prednisone 20 Mg Tablet PO 07/08/25 03:06 40 mg ONCE ONE Administration Medical Decision Making Medical Decision Making [facility] Narrative: 55M with past medical history of asthma, pulmonary fibrosis, tobacco use BIBA for dyspnea. Patient is a poor historian, dozing off during interview. States difficulty breathing started an hour ago. Endorsing cough for the last few days, no fever/chills. States his inhlaer has been helping but he lost it yesterday. I've considered the following diagnoses: asthma exacerbation, COPD exacerbation, pneumothorax, PE, opioid intoxication, pneumonia. Vitals stable, maintaining good SpO2 sat on room air. CXR with no evidence of pneumothorax or pneumonia. Plan: CXR, XIOMARA/EVANGELINA, PO prednisone.... I've reviewed the following tests: CBC no anemia or leukocytosis, CMP, CXR, viral panel negative Differential Diagnosis Differential Diagnoses: The differential diagnosis associated with the presentation includes See medical decision-making Admission/Observation Consideration of admission/observation: Escalation of care including admission/observation considered Not applicable Lab Data [facility] Lab Attestation statement: I reviewed the patient's lab results. 07/08/25 03:09 07/08/25 03:09 Labs: Lab Results 07/08/25 Range/Units 03:09 WBC 10.0 (4.8-10.8) X10*3/uL RBC 4.85 (4.60-5.80) X10*6/uL Hgb 14.8 (14.0-18.0) g/dl Hct 42.8 (42.0-52.0) % MCV 88.2 (80.0-98.0) fL MCH 30.5 (27.0-33.0) pg MCHC 34.6 (31.0-36.0) g/dl RDW 13.1 (11.0-16.0) % Plt Count 294 (160-400) X10*3/uL MPV 9.8 (9.4-12.4) fL Immature Gran % (Auto) 0.3 (0.0-0.4) % Neut % (Auto) 64.7 (45-73) % Lymph % (Auto) 22.6 (20-40) % [place] % (Auto) 7.4 (2-11) % Eos % (Auto) 4.5 H (0-4) % Baso % (Auto) 0.5 (0-2) % Lymph # (Auto) 2.3 (1.2-4.9) X10*3/uL [place] # (Auto) 0.7 (0.1-1.2) X10*3/uL Eos # (Auto) 0.5 H (0.0-0.4) X10*3/uL Baso # (Auto) 0.1 (0.0-0.2) X10*3/uL Abs Immat Gran (auto) 0.03 (0.00-0.03) X10*3/uL Absolute Neuts (auto) 6.5 (2.0-8.3) x10*3/uL Absolute Nucleated RBC 0.000 (0.0-0.012) X10*3/uL Nucleated RBC % (auto) 0.0 (0.0-0.2) /100WBC Sodium 138 (135-145) mmol/L Potassium 3.9 (3.3-5.1) mmol/L Chloride 108 (96-108) mmol/L Carbon Dioxide 23 (22-29) mmol/L Anion Gap 11 L (12-20) BUN 13 (9-16) mg/dL Creatinine 0.85 (0.5-1.4) mg/dL Estim Creat Clear Calc 108.6 Estimated GFR > 60 Random Glucose 103 (60-115) mg/dL Calcium 9.2 (8.4-10.2) mg/dL Magnesium 2.2 (1.6-2.6) mg/dL Total Bilirubin 0.3 (0.0-1.0) mg/dL AST 42 H (5-37) U/L ALT 30 (0-40) U/L Alkaline Phosphatase 116 (39-117) U/L Total Protein 7.4 (6.5-8.0) g/dL Albumin 4.3 (3.5-5.0) g/dL COVID-19 ([facility]) Negative (Negative) COVID-19 Clin Com See Note Influenza Type A (CARLOS) Negative (Negative) Influenza Type B (CARLOS) Negative (Negative) Influenza A & B Note See Note Radiology Impression Discussion of test interpretation with radiology: I have reviewed the radiologist's reading. Discharge Plan Discharge Clinical Impression: Asthma with exacerbation Patient Disposition: Home, Self-Care Instructions: Asthma (ED) Additional Instructions: You are being treated for an asthma exacerbation. See home care instructions. The chest x-ray was clear you do not have pneumonia, the viral panel was negative. Use your albuterol as needed, take the steroid as directed. Take the Z-Saurabh as directed. Follow up with primary care as needed. Prescriptions: New azithromycin 250 mg tablet 250 mg PO DAILY 4 Days Qty: 4 0RF Rx Instructions: start on day 2 of therapy prednisone 20 mg tablet 40 mg PO DAILY Qty: 8 0RF albuterol sulfate [Ventolin HFA] 90 mcg/actuation HFA aerosol inhaler 2 puff inhalation Q4-6H PRN (Reason: shortness of breath or wheezing) Qty: 8.5 0RF
--- NOTE | 2025-07-08 03:11 | PC.NURSE ---
pt biba, complaint of SOB, hc of asthma, pt confirms he has been out of his asthma pump for at least a week, confirms smokes cigarettes. sp02 at 95% room air. provider at bedside completing her assessment.
[2025-07-08 03:17] LABS: MANUAL DIFF FLAG NO
[2025-07-08] MEDS: Albuterol Sulfate 5 MG, Albuterol/Iprat 2.5/0.5MG 3 ML 3 ML INHALE (03:19)
[2025-07-08 03:21] VITALS: PULSE 92; RESP 18; O2SAT 95
--- NOTE | 2025-07-08 03:24 | PC.NURSE ---
pt medicated per MAR, respiratory therapy at bedside, albuterol administered with face mask. pt partner at bedside.
[2025-07-08 03:30] LABS: Hematocrit 42.8 % (42.0-52.0); Hemoglobin 14.8 g/dl (14.0-18.0); Imm Gran Abs Auto 0.03 X10*3/uL (0.00-0.03); Imm Gran Pct Auto 0.3 % (0.0-0.4); Lymphocytes Absolute Auto 2.3 X10*3/uL (1.2-4.9); Mean Corpuscular HGB Conc 34.6 g/dl (31.0-36.0); Mean Corpuscular Hemoglobin 30.5 pg (27.0-33.0); Mean Corpuscular Volume 88.2 fL (80.0-98.0); NRBC Abs Auto 0.000 X10*3/uL (0.0-0.012); NRBC Pct Auto 0.0 /100WBC (0.0-0.2); Platelet Count 294 X10*3/uL (160-400); Red Blood Count 4.85 X10*6/uL (4.60-5.80); White Blood Count 10.0 X10*3/uL (4.8-10.8)
[2025-07-08 03:38] LABS: Alanine Aminotransferase 30 U/L (0-40); Albumin Level 4.3 g/dL (3.5-5.0); Alkaline Phosphatase 116 U/L (39-117); Anion Gap 11 (12-20); Aspartate Amino Transferase 42 U/L (5-37); Blood Urea Nitrogen 13 mg/dL (9-16); Calcium 9.2 mg/dL (8.4-10.2); Carbon Dioxide 23 mmol/L (22-29); Chloride 108 mmol/L (96-108); Creatinine Clr Calc Pharmacy 108.6; Estimated Glomerular Filt Rate > 60; Magnesium 2.2 mg/dL (1.6-2.6); Potassium 3.9 mmol/L (3.3-5.1); Sodium 138 mmol/L (135-145); Total Protein 7.4 g/dL (6.5-8.0)
[2025-07-08 03:41] LABS: COVID-19 Test Negative (Negative); IDNOW Serial# 55D5AD1C; IDNOW Serial# 58CA691E; Influenza B2 Negative (Negative)
[2025-07-08 04:37] VITALS: BP 106/53; PULSE 88; RESP 18; TEMP 36.8; O2SAT 96
--- NOTE | 2025-07-08 04:57 | PC.NURSE ---
pt sleeping when this RN entered the room. I repositioned pt onto his back and had him push up in the stretcher, pt sleepy but followed commands.
--- NOTE | 2025-07-08 05:23 | PC.NURSE ---
pt medicated per MAR
[2025-07-08 05:24] VITALS: BP 113/63; PULSE 87; RESP 16; TEMP 36.8; O2SAT 98
== END 2025-07-08 05:33 | disposition home or self-care (01) ==
LOC: HO.ED 05:32
PROVIDERS: Physician Assistant Medical; Emergency Provider Emergency Medicine
DX: J45.901 Unspecified asthma with (acute) exacerbation (principal); R06.02 Shortness of breath; Z11.52 Encounter for screening for COVID-19; Z79.899 Other long term (current) drug therapy
CPT/HCPCS: 36415; 71045; 80053; 83735; 85025; 87502; 87635; 94640; 99284

== ENCOUNTER 2025-08-17 17:12 | Emergency (ER) | payer MEDICAID, SELFPAY ==
--- NOTE | ~2025-08-17 | XR_ITS ---
CLINICAL HISTORY: cough, sob 2 view chest x-ray Comparison: CR/RI/SR - XR CHEST 2 VIEWS - 12/30/22 10:44 EDT Findings: No consolidation or effusion. Normal size heart. No acute fracture. IMPRESSION: 1. No acute findings. This document has been electronically signed by: Benjamin Harmon MD on 08/17/2025 17:42:05
[2025-08-17 17:16] VITALS: BP 119/68; PULSE 94; RESP 18; TEMP 36.1; O2SAT 96; BMI 27.3
--- NOTE | 2025-08-17 17:20 | ED_ITS ---
HPI - SOB/Dyspnea General Chief Complaint: Upper Respiratory Symptoms Stated Complaint: difficulty breathing Time Seen by Provider: 08/17/25 17:27 Source: patient, RN notes reviewed and old records reviewed Mode of arrival: ambulatory History of Present Illness ED Provider: Cyndy Rodriguez PA-C HPI Narrative: 55-year-old male with a past medical history of asthma, pulmonary fibrosis, presenting to the ED complaining of dry cough and SOB x2 days. Admits was seen and treated in our ED 1 month ago prescribed inhaler/other medications however was unable to picking supervisor from the pharmacy. Denies chest pain, travel, pedal edema, fever Related Data Previous Rx's ?Medication ?Instructions ?Recorded albuterol sulfate 90 mcg/actuation 2 puff inhalation Q 4-6H PRN 08/12/20 aerosol inhaler (Ventolin HFA) shortness of breath or wheezing #1 ea prednisone 20 mg tablet 40 mg (2 x 20 mg) PO DAILY 5 days 08/12/20 #10 tabs azithromycin 250 mg tablet See Rx Instructions PO .COM PLEX #6 12/30/22 tabs benzonatate 200 mg capsule 200 mg PO TID PRN cough #20 caps 12/30/22 prednisone 20 mg tablet 40 mg (2 x 20 mg) PO DAILY # 10 tabs 12/30/22 omeprazole 20 mg capsule,delayed 20 mg PO DAILY #30 ca ps 05/12/23 release doxycycline monohydrate 100 mg 100 mg PO BID 7 days #1 4 caps 12/01/23 capsule cephalexin 500 mg tablet 500 mg PO QID #28 tabs 12/12 acetaminophen 500 mg capsule 1,000 mg (2 x 500 mg) PO Q8H PRN 02/16/25 fever or pain #14 caps cefuroxime axetil 500 mg tablet 500 mg PO BID #16 tabs 02/16/25 doxycycline monohydrate 100 mg 100 mg PO BID #16 caps 02/16/25 capsule hydroxyzine HCl 50 mg tablet 50 mg PO TID PRN itching #10 tabs 02/16/25 ibuprofen 400 mg tablet 400 mg PO Q6H PRN pain #14 t abs 02/16/25 albuterol sulfate 90 mcg/actuation 2 puff inhalation Q 4-6H PRN 07/08/25 aerosol inhaler (Ventolin HFA) shortness of breath or wheezing #8.5 grams azithromycin 250 mg tablet 250 mg PO DAILY 4 days #4 t abs 07/08/25 prednisone 20 mg tablet 40 mg (2 x 20 mg) PO DAILY # 8 tabs 07/08/25 albuterol sulfate 90 mcg/actuation 2 puff inhalation Q 4-6H PRN 08/17/25 aerosol inhaler shortness of breath or wheez ing #6.7 grams benzonatate 100 mg capsule 100 mg PO TID PRN cough #14 caps 08/17/25 Allergies Allergy/AdvReac Type Severity Reaction Status Date / Time penicillin V Allergy Unknown Rash Verified 08/17/25 17:19 Penicillins (PENICILLINS) Allergy Unknown Rash Verified 08/17/25 17:19 shellfish derived Allergy Swelling Verified 08/17/25 17:19 Review of Systems Review of Systems: Yes all other systems are reviewed and are negative Constitutional: Constitutional: Reports as per [facility] Past Medical History Attestation statement: The following information was validated with the patient. Source: old records reviewed Medical History Pneumonia Asthma Surgical History No pertinent past surgical history Family History Family History Mother Diabetes Pulmonary disease Father Medical history unknown Daughter No problems noted. Son No problems noted. Son No problems noted. Son No problems noted. Sister In good health Brother No problems noted. Social History Social History Alcohol intake: current Alcohol intake frequency: holidays/special occasions only Alcohol type: beer Substance Use Type: Crack/Cocaine Physical Exam Vital Signs: Vital Signs: Last Vital Signs Temp 97.0 F 08/17/25 17:16 Pulse 94 08/17/25 17:16 Resp 18 08/17/25 17:16 BP 119/68 08/17/25 17:16 Pulse Ox 96 08/17/25 17:16 O2 Del Method Room Air 08/17/25 17:16 BMI result Body Mass Index 27.3 Const: General: cooperative, healthy appearing and no acute distress Orientation/consciousness: patient oriented x3 Limitations: no limitations HEENT: Head: Yes normal to inspection and Yes atraumatic Ears: hearing grossly normal bilaterally General nose exam: Normal external nose present Face and sinus: Yes normal facial exam Mouth: Normal oral and palatal mucosa present, no drooling and no muffled voice Throat: Yes posterior oropharynx normal, Yes tonsils normal, Yes uvula midline, No uvula laterally displaced and No uvular edema Eyes: General: appearance normal, both eyes and all related structures EOM: EOMs intact bilaterally Neck: Neck: Yes normal visual inspection and Yes no meningeal signs Resp: Effort & Inspection: normal respiratory effort, Actively coughing Quality: dry, no respiratory distress and no stridor Auscultation: clear to auscultation bilaterally, no crackles, no rales, no rhonchi and no wheezes Cardio: Rate: regular rate Heart sounds: S1 normal heart sound present and S2 normal heart sound present Skin: Rashes: no rashes Wounds: no wounds Neuro: General: patient oriented x3, tone normal and no meningeal signs Cranial nerves: Yes CN's II-XII intact bilaterally Gait exam (Neuro): Normal gait present Extrem: General: Yes normal to inspection Course Course Course Narrative: This is a Rapid Medical Exam performed in triage by Cyndy Rodriguez PA-C. Full HPI, ROS and PE to be performed by primary ED provider. 55 yo M w/pmhx asthma, pulmonary fibrosis presenting to the ED c/o cough & SOB x yesterday. states he does not have an inhaler PE: Talking in complete sentences. No respiratory distress. Lungs CTA Plan: EKG, CXR -patient refusing COVID testing XR chest 2V IMPRESSION: 1. No acute findings. Results discussed with patient including worrisome signs and symptoms and strict return precautions, and when to return to the emergency department. They verbalized understanding and feel safe for discharge at this time. Medications Administered Discontinued Medications Generic Name Dose Route Start Last Admin Trade Name Freq PRN Reason Stop Dose Admin Albuterol Sulfate 4 puff 08/17/25 17:25 08/17/25 18:07 Albuterol Sulfate 90 Mcg 8 Gm Inhaler INHALE 08/17/25 17:26 4 puff ONCE ONE Administration Medical Decision Making Medical Decision Making MDM Narrative: 55-year-old male with a past medical history of asthma, pulmonary fibrosis, presenting to the ED complaining of dry cough and SOB x2 days. On exam vital signs stable, NAD, nontoxic appearing, talking in complete sentences, lungs CTA. Concern for asthma exacerbation vs viral illness vs pneumonia. Lower suspicion for ACS, PE, DVT, dissection Plan: CXR, albuterol inhaler in the ED. Patient refused COVID/flu testing Please refer to course for remaining clinical decision making, interpretation of labs/imaging results, and discussions with consultants and/or family members. Differential Diagnosis Differential Diagnoses: The differential diagnosis associated with the presentation includes As above Lab Data MDM Lab Attestation statement: I reviewed the patient's lab results. Independent Interpretation I performed an independent interpretation of an: EKG (My interpretation: EKG sinus tachycardia rate of 104. PA interval 142. QTC 431. Incomplete right bundle-branch block noted. No STEMI) and Plain X-Ray Radiology Impression Discussion of test interpretation with radiology: I have reviewed the radiologist's reading. External Record Review External record reviewed: Inpatient record, Office record, Outpatient record, Prior outpatient labs, Prior outpatient radiology, Primary care record and Outside ED record Tests considered The following testing was considered but not selected: As above Prescription Management I considered prescription management with: Pain Medication and Antibiotic Chronic Conditions Patient?s care impacted by: Other Social Determinants Patient?s care significantly limited by Social Determinants of Health including: Inadequate housing, Low income, Alcoholism and drug addiction in family and Other Social Determinant of Health Discharge Plan Discharge Clinical Impression: Asthma Patient Disposition: Home, Self-Care Instructions: Asthma (DC) Additional Instructions: Your x-rays unremarkable Please use albuterol inhaler that was supplied for you In addition take prednisone which is a steroid and Tessalon Perles which are for cough Follow up with her doctor If her symptoms persist or worsen you have constant worsening chest pain, shortness of breath, fever return to the ED Prescriptions: New benzonatate 100 mg capsule 100 mg PO TID PRN (Reason: cough) Qty: 14 0RF albuterol sulfate 90 mcg/actuation HFA aerosol inhaler 2 puff inhalation Q4-6H PRN (Reason: shortness of breath or wheezing) Qty: 6.7 0RF No Action albuterol sulfate [Ventolin HFA] 90 mcg/actuation HFA aerosol inhaler 2 puff inhalation Q4-6H PRN (Reason: shortness of breath or wheezing) Qty: 1 0RF prednisone 20 mg tablet 40 mg PO DAILY 5 Days Qty: 10 0RF azithromycin 250 mg tablet See Rx Instructions .ROUTE .COMPLEX Qty: 6 0RF Rx Instructions: For 250 mg dose pack: take 500 mg today (day 1), then 250 mg for 4 days (days 2-5) benzonatate 200 mg capsule 200 mg PO TID PRN (Reason: cough) Qty: 20 0RF prednisone 20 mg tablet 40 mg PO DAILY Qty: 10 0RF omeprazole 20 mg capsule,delayed release(DR/EC) 20 mg PO DAILY Qty: 30 0RF ibuprofen 400 mg tablet 400 mg PO Q6H PRN (Reason: pain) Qty: 14 0RF acetaminophen 500 mg capsule 1,000 mg PO Q8H PRN (Reason: fever or pain) Qty: 14 0RF doxycycline monohydrate 100 mg capsule 100 mg PO BID Qty: 16 0RF cefuroxime axetil 500 mg tablet 500 mg PO BID Qty: 16 0RF hydroxyzine HCl 50 mg tablet 50 mg PO TID PRN (Reason: itching) Qty: 10 0RF azithromycin 250 mg tablet 250 mg PO DAILY 4 Days Qty: 4 0RF Rx Instructions: start on day 2 of therapy prednisone 20 mg tablet 40 mg PO DAILY Qty: 8 0RF albuterol sulfate [Ventolin HFA] 90 mcg/actuation HFA aerosol inhaler 2 puff inhalation Q4-6H PRN (Reason: shortness of breath or wheezing) Qty: 8.5 0RF doxycycline monohydrate 100 mg capsule 100 mg PO BID 7 Days Qty: 14 0RF cephalexin 500 mg tablet 500 mg PO QID Qty: 28 0RF Referrals: Physician,Unknown J [Primary Care Provider, Medical] - 3 days Print Language: Maori
--- NOTE | 2025-08-17 17:26 | ECG_ITS ---
Test Reason : SOB Blood Pressure : */* mmHG Vent. Rate : 104 BPM Atrial Rate : 104 BPM P-R Int : 142 ms QRS Dur : 108 ms QT Int : 328 ms P-R-T Axes : 71 -15 66 degrees QTcB Int : 431 ms Sinus tachycardia Incomplete right bundle branch block Borderline ECG When compared with ECG of 30-Dec-2022 10:08, Incomplete right bundle branch block is now Present Referred By: Cyndy Rodriguez Electronically Signed By: ROCKY BERNARDO
[2025-08-17] MEDS: Albuterol Sulfate 90 MCG 8 GM INHALER 4 PUFF INHALE (18:07)
[2025-08-17 18:13] VITALS: BP 119/68; PULSE 94; RESP 18; TEMP 36.1; O2SAT 96
== END 2025-08-17 18:13 | disposition home or self-care (01) ==
LOC: HO.ED 18:11
PROVIDERS: Emergency Provider Student in an Organized Health Care Education/Training Program
DX: J45.909 Unspecified asthma, uncomplicated (principal); R06.02 Shortness of breath; R00.0 Tachycardia, unspecified; I45.10 Unspecified right bundle-branch block; R05.9 Cough, unspecified; Z79.51 Long term (current) use of inhaled steroids
CPT/HCPCS: 71046; 93005; 99283; 99284

== ENCOUNTER → 2025-08-17 17:25 | Outpatient (BNV) | payer MEDICAID, SELFPAY | PROVIDERS: Emergency Provider Student in an Organized Health Care Education/Training Program; Visit Provider Radiology Diagnostic Radiology | DX: R05.9 Cough, unspecified (principal); R06.02 Shortness of breath | CPT/HCPCS: 71046 ==

== ENCOUNTER → 2025-08-17 17:26 | Outpatient (BNV) | payer MEDICAID, SELFPAY | PROVIDERS: Emergency Provider Student in an Organized Health Care Education/Training Program; Visit Provider Internal Medicine | DX: R00.0 Tachycardia, unspecified (principal); I45.10 Unspecified right bundle-branch block | CPT/HCPCS: 93010 ==